=== PATIENT | male | born 1945 | race Caucasian/White ===

== ENCOUNTER 2016-10-13 20:00 | Inpatient (IN) | payer MEDICAID, OTHER ==
[~2016-10-13] VITALS: Ht 193 cm; Wt 96.8 kg
[~2016-10-13 20:00] MED LIST: ASPI81TA31 PO; FLUT9.9S NS; METO25TA6 PO
[2016-10-13] MEDS ORDERED: CLOP75TA33 PO (20:59)
[2016-10-13] MEDS ORDERED: ISOS120T9 PO (20:59)
[2016-10-13] MEDS ORDERED: LORA-980 PO (20:59)
[2016-10-13] MEDS ORDERED: FERR325T41 PO (20:59)
[2016-10-13] MEDS ORDERED: NITR0.4T SL (20:59)
[2016-10-13] MEDS ORDERED: AMLO10TA2 PO (20:59)
[2016-10-13] MEDS ORDERED: MAGN400T6 PO (20:59)
[2016-10-13] MEDS ORDERED: ATOR80TA26 PO (20:59)
[2016-10-13] MEDS ORDERED: CARV3.122 PO (20:59)
[2016-10-13] MEDS ORDERED: PANT40TA4 PO (21:00)
[2016-10-13] MEDS ORDERED: RANO10003 PO (21:00)
[2016-10-13] MEDS ORDERED: NITROGLYCERIN OINT 1 GM PACKET TP ONE ×2 (21:15→21:23)
[2016-10-13 21:28] LABS: BASOPHILS # (AUTO) 0.1 K/uL (0.0-8.0); BASOPHILS % (AUTO) 1.2 % (0.0-2.0); EOSINOPHILS # (AUTO) 0.2 K/uL (0.0-0.7); EOSINOPHILS % (AUTO) 2.7 % (0.0-7.0); HEMATOCRIT 31.9 % (36.7-47.1); HEMOGLOBIN 10.8 g/dL (12.5-16.3); LYMPHOCYTES # (AUTO) 1.3 K/uL (20.0-40.0); LYMPHOCYTES % (AUTO) 20.4 % (20.5-51.5); MEAN CORPUSCULAR HEMOGLOBIN 28.9 uug (23.8-33.4); MEAN CORPUSCULAR HGB CONC 34 g/dL (32.5-36.3); MEAN CORPUSCULAR VOLUME 85.2 fL (73.0-96.2); MONOCYTES # (AUTO) 0.5 K/uL (2.0-10.0); MONOCYTES % (AUTO) 8.5 % (0.0-11.0); NEUTROPHILS # (AUTO) 4.2 K/uL (1.8-8.9); NEUTROPHILS % (AUTO) 67.2 % (38.5-71.5); PLATELET COUNT (AUTO) 268 K/uL (152-348); RED BLOOD CELL COUNT(AUTO) 3.74 MIL/uL (4.06-5.63); RED CELL DISTRIBUTION WIDTH 14.4 % (12.1-16.2); WHITE BLOOD COUNT (AUTO) 6.3 K/uL (3.6-10.2)
[2016-10-13 21:44] LABS: CALCIUM 8.4 mg/dL (8.5-10.1); CREATININE 1.1 mg/dL (0.6-1.3); POTASSIUM 3.9 mmol/L (3.5-5.1)
[2016-10-13] MEDS ORDERED: CLOPIDOGREL 75 MG TABLET PO ONE (21:45)
[2016-10-13] MEDS ORDERED: METOPROLOL TARTRATE 50 MG TABLET PO ONE (21:45)
[2016-10-13] MEDS ORDERED: ENOXAPARIN SODIUM 30 MG/0.3 ML DISP.SYRIN SUBCUT ONE (21:45)
[2016-10-13 21:49] LABS: ALBUMIN 3.5 g/dL (3.4-5.0); BILIRUBIN,DIRECT 0.1 mg/dL (0.0-0.2); BILIRUBIN,TOTAL 0.3 mg/dL (0.2-1.0); TOTAL PROTEIN, SERUM 6.8 g/dL (6.4-8.2)
[2016-10-13] MEDS ORDERED: METOPROLOL TARTRATE 50 MG TABLET ONE (21:55)
[2016-10-13] MEDS ORDERED: ENOXAPARIN SODIUM 100 MG/ML DISP.SYRIN SQ ONE (21:55)
[2016-10-13] MEDS ORDERED: CLOPIDOGREL 75 MG TABLET ONE (21:56)
--- NOTE | 2016-10-13 22:00 | NUR ---
PT IN ROOM WITH NO DISTRESS NOTED
--- NOTE | 2016-10-13 22:47 | NUR ---
TRANSFERED TO 2ND FLOOR VIA [facility] [address] ROOM [address] JEVON
[2016-10-13 23:00] VITALS: BP 113/66
--- NOTE | 2016-10-13 23:15 | NUR ---
RECEIVED PT FROM ER BIB STAFF VIA [employer]. PT A/OX4, IN NO ACUTE DISTRESS. O2 SAT WNL ON RA. NO SOB OBSERVED/REPORTED. STATES CHEST PAIN BETTER WITH NITRO PATCH GIVEN IN ER, WITH PAIN LEVEL OF 2/10 AT THIS TIME, TOLERABLE PER PATIENT'S REPORT. MADE COMFORTABLE. IV TO L FA INTACT AND PATENT. C/O NAUSEA REQUESTING PROTONIX THAT "HELPS WITH NAUSEA", WILL NOTIFY MD. ALL NEEDS ATTENDED AT THIS TIME. VS STABLE. ON TELE SR ON THE MONITOR WITH HR 62. ADMISSION DONE PER PROTOCOL. WILL CONTINUE TO MONITOR.
[2016-10-13] MEDS ORDERED: NITROGLYCERIN 0.4 MG/TAB BOTTLE SL SCH (23:45)
[2016-10-14] MEDS ORDERED: HYDROCODONE/APAP 5-325MG TABLET PO PRN
[2016-10-14] MEDS ORDERED: ZOLPIDEM 5 MG TABLET PO PRN
[2016-10-14] MEDS ORDERED: ACETAMINOPHEN 325 MG TABLET PO PRN
[2016-10-14] MEDS ORDERED: PANTOPRAZOLE SODIUM 40 MG TABLET.DR PO STA (01:28)
--- NOTE | 2016-10-14 01:48 | NUR ---
PROTONIX 40MG PO X1 GIVEN ORDERED, PER PT'S REQUEST. WILL CONTINUE TO MONITOR.
[2016-10-14 04:00] VITALS: BP 110/72
--- NOTE | 2016-10-14 05:01 | NUR ---
PT C/O CHEST PAIN DESCRIBED DULL 10/03 REQUESTING MED, PRN NITROGLYCERIN TAB GIVEN PRESCRIBED. WILL CONTINUE TO MONITOR.
[2016-10-14] MEDS ORDERED: NITROGLYCERIN 0.4 MG/TAB BOTTLE SL ONE (05:03)
[2016-10-14 06:47] LABS: BASOPHILS % (AUTO) 0.5 % (0.0-2.0); EOSINOPHILS # (AUTO) 0.1 K/uL (0.0-0.7); HEMATOCRIT 31.7 % (36.7-47.1); HEMOGLOBIN 10.5 g/dL (12.5-16.3); MEAN CORPUSCULAR HEMOGLOBIN 29.1 uug (23.8-33.4); MEAN CORPUSCULAR HGB CONC 33 g/dL (32.5-36.3); MEAN CORPUSCULAR VOLUME 87.8 fL (73.0-96.2); MONOCYTES # (AUTO) 0.7 K/uL (2.0-10.0); MONOCYTES % (AUTO) 15.6 % (0.0-11.0); NEUTROPHILS # (AUTO) 2.8 K/uL (1.8-8.9); NEUTROPHILS % (AUTO) 59.9 % (38.5-71.5); PLATELET COUNT (AUTO) 223 K/uL (152-348); RED BLOOD CELL COUNT(AUTO) 3.61 MIL/uL (4.06-5.63); RED CELL DISTRIBUTION WIDTH 14.7 % (12.1-16.2); WHITE BLOOD COUNT (AUTO) 4.6 K/uL (3.6-10.2)
--- NOTE | 2016-10-14 06:56 | NUR ---
PATIENT SLEPT WELL PER SHIFT. CHEST PAIN MANAGED WITH PRN MED WITH GOOD RELIEF PER PT'S REPORT. VS STABLE. NO ACUTE DISTRESS NOTED. ALL NEEDS MET. CALL LIGHT IS WITHIN REACH. SAFETY MAINTAINED.
--- NOTE | 2016-10-14 07:01 | NUR ---
PT ON TELE SINUS FRANTZ ON THE MONITOR, HR- 53 AT THIS TIME. NO ACUTE DISTRESS NOTED. WILL ENDORSE PLAN OF CARE TO INCOMING NURSE.
[2016-10-14 08:04] LABS: THYROID STIMULATING HORMONE 2.015 mIU/mL (0.358-3.740)
[2016-10-14 08:28] LABS: ALBUMIN 3.2 g/dL (3.4-5.0); BILIRUBIN,TOTAL 0.2 mg/dL (0.2-1.0); CALCIUM 8.5 mg/dL (8.5-10.1); MAGNESIUM 2.3 mg/dL (1.8-2.4); PHOSPHOROUS 4.5 mg/dL (2.5-4.9); POTASSIUM 4.4 mmol/L (3.5-5.1); TOTAL PROTEIN, SERUM 6.6 g/dL (6.4-8.2)
[2016-10-14] MEDS ORDERED: Medication Not On Formulary EA (Atorvastatin Calcium (Lipitor) 80 MG) PO SCH (09:00)
[2016-10-14] MEDS: RANOLAZINE 500 MG TAB.ER.12H PO SCH ×2 (09:43→20:04)
[2016-10-14] MEDS: ISOSORBIDE MONONITRATE 60 MG TAB.SR.24H PO SCH (09:46)
[2016-10-14] MEDS: CLOPIDOGREL 75 MG TABLET PO SCH (09:46)
[2016-10-14] MEDS: PANTOPRAZOLE SODIUM 40 MG TABLET.DR PO SCH (09:47)
[2016-10-14] MEDS: FERROUS SULFATE 325 MG TABEC PO SCH (09:47)
[2016-10-14] MEDS: LORATADINE 10 MG TABLET PO SCH (09:47)
[2016-10-14] MEDS: MAGNESIUM OXIDE 400 MG TABLET PO SCH ×2 (09:47→17:17)
[2016-10-14] MEDS: AMLODIPINE 10 MG TABLET PO SCH (09:47)
[2016-10-14] MEDS: NITROGLYCERIN 0.4 MG/TAB BOTTLE SL PRN (09:50)
[2016-10-14 11:04] LABS: EOSINOPHILS % (MANUAL) 4 % (0-8); LYMPHOCYTES % (MANUAL) 23 % (20-40); MONOCYTES % (MANUAL) 11 % (2-10); NEUTROPHILS % (MANUAL) 62 % (42-75)
[2016-10-14 11:05] LABS: PLATELET ESTIMATE ADEQUATE
[2016-10-14] MEDS: CARVEDILOL 3.125 MG TABLET PO SCH ×3 (11:42→18:46)
[2016-10-14 12:00] VITALS: BP 116/67
--- NOTE | 2016-10-14 14:59 | NUR ---
Dr. Lozoya would like to transfer the patient to [facility] for a heart cath. This changeover operator spoke to the patient and explained to him about the transfer process and he stated not to bother transferring him because he will be leaving tomorrow morning and will go to [facility] ER. He stated he has done this in the past and would prefer to just be discharged tomorrow morning. Updated Dr. Dudley on the situation and he will talk to him about it. CM/SW will follow-up.
[2016-10-14 16:00] VITALS: BP 115/70
[2016-10-14] MEDS: MORPHINE SULFATE 2 MG/1 ML DISP.SYRIN IV PRN (17:17)
--- NOTE | 2016-10-14 17:18 | NUR ---
Patient reports chest pain again but refuses nitroglycerin. Patient requests morphine instead. Patient states, "Nitroglycerin is useless"
--- NOTE | 2016-10-14 19:30 | NUR ---
PT IN BED RESTING COMFORTABLY. NO ACUTE DISTRESS NOTED. NO S/S OF RESPIRATORY DISTRESS NOTED. CALL LIGHT WITHIN REACH. SAFETY MEASURES IN PLACE. ON TELE: SR ON THE MONITOR- HR 62. WILL CONTINUE TO MONITOR.
[2016-10-14] MEDS: DOCUSATE SODIUM 100 MG CAPSULE PO SCH (20:04)
[2016-10-14] MEDS: ATORVASTATIN 40 MG TABLET PO SCH (20:04)
[2016-10-14] MEDS: ALBUTEROL SULFATE 1.25 MG/3 ML NEBU NEB PRN (20:23)
[2016-10-14 20:33] VITALS: BP 102/61
[2016-10-15] VITALS: BP 115/66
[2016-10-15] MEDS: ALBUTEROL SULFATE 1.25 MG/3 ML NEBU NEB PRN ×3 (01:16→14:30)
[2016-10-15 04:00] VITALS: BP 128/71
[2016-10-15] MEDS: NITROGLYCERIN 0.4 MG/TAB BOTTLE SL PRN ×3 (06:02→09:01)
--- NOTE | 2016-10-15 06:48 | NUR ---
Patient slept well per shift. No acute distress noted. No s/s of respiratory distress observed/reported. Requesting prn nitro x1 this am for chest pain, with good relief stating " oh yeah it helps!" provided breathing tx prn per patient's request. on tele sr on the monitor. All needs met. Call light within reach. Safety and comfort maintained.
[2016-10-15] MEDS: CARVEDILOL 3.125 MG TABLET PO SCH ×2 (08:27→17:31)
[2016-10-15] MEDS: RANOLAZINE 500 MG TAB.ER.12H PO SCH ×2 (09:08→21:00)
[2016-10-15] MEDS: ISOSORBIDE MONONITRATE 60 MG TAB.SR.24H PO SCH (09:10)
[2016-10-15] MEDS: CLOPIDOGREL 75 MG TABLET PO SCH (09:12)
[2016-10-15] MEDS: MAGNESIUM OXIDE 400 MG TABLET PO SCH ×2 (09:12→17:30)
[2016-10-15] MEDS: LORATADINE 10 MG TABLET PO SCH (09:13)
[2016-10-15] MEDS: AMLODIPINE 10 MG TABLET PO SCH (09:14)
[2016-10-15] MEDS: FERROUS SULFATE 325 MG TABEC PO SCH (09:14)
[2016-10-15] MEDS: PANTOPRAZOLE SODIUM 40 MG TABLET.DR PO SCH (09:14)
[2016-10-15 11:28] VITALS: BP 128/75
[2016-10-15] MEDS: MORPHINE SULFATE 2 MG/1 ML DISP.SYRIN IV PRN (11:40)
[2016-10-15 15:42] VITALS: BP 112/68
[2016-10-15 19:00] VITALS: BP 119/70
[2016-10-15] MEDS: ASPIRIN EC 81 MG TABLET.DR PO SCH (21:12)
[2016-10-15] MEDS: ATORVASTATIN 40 MG TABLET PO SCH (21:13)
[2016-10-15] MEDS: DOCUSATE SODIUM 100 MG CAPSULE PO SCH (21:14)
[2016-10-15] MEDS ORDERED: ASPIRIN EC 81 MG TABLET.DR PO ONE (21:20)
[2016-10-16 00:07] VITALS: BP 101/60
--- NOTE | 2016-10-16 02:20 | NUR ---
Pt refused ranexa stating, " I get way too much of that, and I take way too many meds." pt was educated that the medication was for chest pain, pt verbalized he understood and still didn't want to take it. Pt has been resting well, denies pain. VSS. will continue to monitor.
[2016-10-16 04:00] VITALS: BP 119/73
--- NOTE | 2016-10-16 08:00 | NUR ---
Pt is in no acute distress. Discussed plan of care with pt re: notifying nursing for any c/o CP. Pt agreeable with plan of care currently pt is SNR . Pt ambulatory. Call light is within reach.
[2016-10-16] MEDS: PANTOPRAZOLE SODIUM 40 MG TABLET.DR PO SCH (08:36)
[2016-10-16] MEDS: CLOPIDOGREL 75 MG TABLET PO SCH (08:36)
[2016-10-16] MEDS: FERROUS SULFATE 325 MG TABEC PO SCH (08:36)
[2016-10-16] MEDS: RANOLAZINE 500 MG TAB.ER.12H PO SCH ×2 (08:36→20:55)
[2016-10-16] MEDS: MAGNESIUM OXIDE 400 MG TABLET PO SCH ×2 (08:36→18:03)
[2016-10-16] MEDS: ASPIRIN EC 81 MG TABLET.DR PO SCH (08:37)
[2016-10-16] MEDS: LORATADINE 10 MG TABLET PO SCH (08:37)
[2016-10-16] MEDS: ISOSORBIDE MONONITRATE 60 MG TAB.SR.24H PO SCH (08:38)
[2016-10-16] MEDS: AMLODIPINE 10 MG TABLET PO SCH (08:39)
[2016-10-16] MEDS: CARVEDILOL 3.125 MG TABLET PO SCH ×2 (08:39→18:06)
[2016-10-16 11:58] VITALS: BP 108/71
--- NOTE | 2016-10-16 14:20 | NUR ---
Spoke to the patient about his discharge he was very demanding and was refusing his discharge today. He insists on being discharged tomorrow just like it was last 10/14/16. Explained to him that he needs to be cooperative with his care in order to stop rehospitalization. Informed him that we will initiate [facility] Transfer and he agreed. Initiated the transfer and faxed the facesheet. Addendum: 10/16/16 at 1525 by SUSAN SILVA CMG Nenita Garcia from [facility] Transfer Center [ ; ] called back and stated that they are currently full and is unable to admit the patient. They will have to close the case because the patient should be able to get the heart cath as an out-patient.
[2016-10-16] MEDS: MORPHINE SULFATE 2 MG/1 ML DISP.SYRIN IV PRN (15:46)
[2016-10-16 16:00] VITALS: BP 96/62
[2016-10-16 20:00] VITALS: BP 96/52
[2016-10-16] MEDS: DOCUSATE SODIUM 100 MG CAPSULE PO SCH (20:55)
[2016-10-16] MEDS: diphenhydrAMINE 25 MG CAP PO PRN (20:55)
[2016-10-16] MEDS: ATORVASTATIN 40 MG TABLET PO SCH (20:55)
[2016-10-16] MEDS ORDERED: diphenhydrAMINE 25 MG CAP PO ONE (21:04)
[2016-10-16] MEDS: ALBUTEROL SULFATE 1.25 MG/3 ML NEBU NEB PRN (21:23)
[2016-10-17 00:20] VITALS: BP 105/71
[2016-10-17 04:00] VITALS: BP 113/66
--- NOTE | 2016-10-17 05:55 | NUR ---
PT IN BED RESTING, SLEPT MOST SHIFT. PT C/O 'BITE-LIKE' RASH ON LEFT SHOULDER WITH ITCHING, DR. LUNA MADE AWARE, WITH ORDER TO GIVE BENADRYL PO NEEDED. NOTED AND CARRIED OUT. V/S CHECKED AND RECORDED, AFEBRILE. DENIES PAIN. PT ON SINUS FRANTZ ON TELE, IN NO ACUTE SIGNS OF DISTRESS. SAFETY OBSERVED. CALL LIGHT WITHIN REACH.
[2016-10-17 07:19] LABS: BASOPHILS % (AUTO) 0.4 % (0.0-2.0); EOSINOPHILS # (AUTO) 0.1 K/uL (0.0-0.7); EOSINOPHILS % (AUTO) 2.6 % (0.0-7.0); HEMATOCRIT 34.7 % (36.7-47.1); HEMOGLOBIN 11.8 g/dL (12.5-16.3); LYMPHOCYTES # (AUTO) 0.9 K/uL (20.0-40.0); LYMPHOCYTES % (AUTO) 15.9 % (20.5-51.5); MEAN CORPUSCULAR HEMOGLOBIN 29.1 uug (23.8-33.4); MEAN CORPUSCULAR HGB CONC 34 g/dL (32.5-36.3); MEAN CORPUSCULAR VOLUME 85.6 fL (73.0-96.2); MONOCYTES # (AUTO) 0.4 K/uL (2.0-10.0); MONOCYTES % (AUTO) 6.7 % (0.0-11.0); NEUTROPHILS # (AUTO) 4.3 K/uL (1.8-8.9); NEUTROPHILS % (AUTO) 74.4 % (38.5-71.5); PLATELET COUNT (AUTO) 214 K/uL (152-348); RED BLOOD CELL COUNT(AUTO) 4.05 MIL/uL (4.06-5.63); RED CELL DISTRIBUTION WIDTH 13.9 % (12.1-16.2)
[2016-10-17 07:41] LABS: WHITE BLOOD COUNT (AUTO) 5.8 K/uL (3.6-10.2)
[2016-10-17 07:57] LABS: CALCIUM 8.5 mg/dL (8.5-10.1); CREATININE 1.1 mg/dL (0.6-1.3); MAGNESIUM 2.3 mg/dL (1.8-2.4); PHOSPHOROUS 4.1 mg/dL (2.5-4.9); POTASSIUM 4.2 mmol/L (3.5-5.1)
[2016-10-17] MEDS: MAGNESIUM OXIDE 400 MG TABLET PO SCH (08:03)
[2016-10-17] MEDS: LORATADINE 10 MG TABLET PO SCH (08:03)
[2016-10-17] MEDS: RANOLAZINE 500 MG TAB.ER.12H PO SCH (08:04)
[2016-10-17] MEDS: FERROUS SULFATE 325 MG TABEC PO SCH (08:04)
[2016-10-17] MEDS: ASPIRIN EC 81 MG TABLET.DR PO SCH (08:04)
[2016-10-17] MEDS: CLOPIDOGREL 75 MG TABLET PO SCH (08:04)
[2016-10-17] MEDS: CARVEDILOL 3.125 MG TABLET PO SCH (08:04)
[2016-10-17] MEDS: AMLODIPINE 10 MG TABLET PO SCH (08:05)
[2016-10-17] MEDS: ISOSORBIDE MONONITRATE 60 MG TAB.SR.24H PO SCH (08:05)
[2016-10-17] MEDS: diphenhydrAMINE 25 MG CAP PO PRN (08:10)
[2016-10-17] MEDS: PANTOPRAZOLE SODIUM 40 MG TABLET.DR PO SCH (08:10)
[2016-10-17] MEDS: ALBUTEROL SULFATE 1.25 MG/3 ML NEBU NEB PRN (08:32)
[2016-10-17 12:00] VITALS: BP 106/61
[2016-10-17] MEDS ORDERED: MECL12.582 PO (13:42)
--- NOTE | 2016-10-17 15:07 | NUR ---
Pharmacist spoke with pt re: new medication meclizine Side effects and its purpose. Pt verbalized understanding. Pt denies any further cp. Instructed pt to f/u with PMD and automotive collision estimator within 1 week. Pt is instructed to go to ER for any c/o cp. Pt verbalized understanding. IV d/c per pt request. Pt to f/u with his PMD about vaccines updates. Pt is in no acute distress. Awaiting ride for pt. Call light is within reach.
--- NOTE | 2016-10-17 15:30 | NUR ---
Pt dc with family member private care. Pt is in no acute distress.
== END 2016-10-17 15:30 | disposition home or self-care (01) | DRG 190 ==
LOC: ER 20:00 → TELE 22:36
PROVIDERS: ADMIT Internal Medicine; ATTEND Internal Medicine
DX: I21.4 Non-ST elevation (NSTEMI) myocardial infarction (principal); I10 Essential (primary) hypertension; M47.814 Spondylosis without myelopathy or radiculopathy, thoracic region; I25.2 Old myocardial infarction; K21.9 Gastro-esophageal reflux disease without esophagitis; Z95.5 Presence of coronary angioplasty implant and graft; I25.119 Atherosclerotic heart disease of native coronary artery with unspecified angina pectoris; J30.9 Allergic rhinitis, unspecified; F41.9 Anxiety disorder, unspecified; E78.5 Hyperlipidemia, unspecified; E66.9 Obesity, unspecified; Z68.26 Body mass index [BMI] 26.0-26.9, adult; D64.9 Anemia, unspecified; Z79.899 Other long term (current) drug therapy; Z82.49 Family history of ischemic heart disease and other diseases of the circulatory system; Z87.891 Personal history of nicotine dependence
CPT/HCPCS: 36415; 70030-TC; 71010; 83550; 83735; 84100; 84443; 85025; 85730; 93005; 93307; 94640; 94664; A4663; J1650; J2270; Q0163

== ENCOUNTER 2017-05-09 19:27 | Inpatient (IN) | payer OTHER ==
[~2017-05-09] VITALS: Ht 185.4 cm; Wt 94.1 kg
[~2017-05-09 19:27] MED LIST changes: +AMLO10TA2 PO; +ATOR80TA26 PO; +CARV3.122 PO; +CLOP75TA33 PO; +FERR-68 PO; +ISOS120T9 PO; +LORA-980 PO; +MAGN400T6 PO; +MECL12.582 PO; -METO25TA6 PO; +NITR0.4T SL; +PANT40TA4 PO; +RANO10003 PO
[2017-05-09] MEDS ORDERED: NITROGLYCERIN OINT 1 GM PACKET TP ONE ×2 (19:45→20:07)
[2017-05-09] MEDS ORDERED: ASPIRIN 325 MG TABLET PO ONE (19:45)
[2017-05-09] MEDS ORDERED: ASPIRIN 325 MG TABLET ONE (20:07)
[2017-05-09 20:13] LABS: BASOPHILS # (AUTO) 0.1 K/uL (0.0-8.0); BASOPHILS % (AUTO) 1.8 % (0.0-2.0); EOSINOPHILS # (AUTO) 0.2 K/uL (0.0-0.7); EOSINOPHILS % (AUTO) 3.6 % (0.0-7.0); HEMATOCRIT 29.7 % (40-50); HEMOGLOBIN 10.4 G/DL (14.0-18.0); LYMPHOCYTES % (AUTO) 16.4 % (20.5-51.5); MEAN CORPUSCULAR HEMOGLOBIN 29.9 UUG (27.0-31.0); MEAN CORPUSCULAR HGB CONC 35 g/dL (32.0-37.0); MEAN CORPUSCULAR VOLUME 85.8 FL (82.0-92.0); MONOCYTES # (AUTO) 0.4 K/UL (0.1-1.30); MONOCYTES % (AUTO) 6.4 % (0.0-11.0); NEUTROPHILS # (AUTO) 4.7 K/UL (1.8-8.9); NEUTROPHILS % (AUTO) 71.8 % (38.5-71.5); PLATELET COUNT (AUTO) 259 K/UL (150-450); RED BLOOD CELL COUNT(AUTO) 3.46 MIL/UL (4.7-6.1); WHITE BLOOD COUNT (AUTO) 6.4 K/UL (4.0-11.2)
[2017-05-09 20:16] LABS: CARBON DIOXIDE 28 mmol/L (21-32); CHLORIDE 107 mmol/L (98-107); GLUCOSE 125 mg/dL (74-106); POTASSIUM 3.7 mmol/L (3.5-5.1); UREA NITROGEN, BLOOD 22 mg/dL (7-18)
[2017-05-09 20:28] LABS: ALANINE AMINOTRANSFERASE 32 U/L (16-63); ALKALINE PHOSPHATASE 82 U/L (50-136); ASPARTATE AMINOTRANSFERASE 28 U/L (15-37); BILIRUBIN,DIRECT < 0.1 mg/dL (0.0-0.2); BILIRUBIN,TOTAL 0.2 mg/dL (0.2-1.0); TOTAL PROTEIN, SERUM 6.5 g/dL (6.4-8.2)
--- NOTE | 2017-05-09 21:58 | NUR ---
Pt. admitted to TELE, under care of Dr. Dudley Belongs List completed
[2017-05-09 22:26] VITALS: BP 116/60
--- NOTE | 2017-05-09 22:30 | NUR ---
Pt asleep upon arrivial in no acute distress. Pt responsive to touch, and a/o x 3. Denies any chest pain or abdominal discomfort at this time. Verbalized i have a small headaches. Pt admitted to Tele sinus rhythm. BP 123/70. O2 sat 98% upon RA. Skin intact and able to move bilateral upper and lower extremities without difficulty. 2 side rails up and call light placed within reach. Continue to monitor.
[2017-05-09] MEDS ORDERED: ACETAMINOPHEN 325 MG TABLET PO PRN (23:15)
[2017-05-09] MEDS ORDERED: MORPHINE SULFATE 2 MG/1 ML DISP.SYRIN IV PRN (23:15)
[2017-05-09] MEDS ORDERED: NITROGLYCERIN 0.4 MG/TAB BOTTLE SL SCH (23:15)
[2017-05-10] VITALS: BP 123/70
--- NOTE | 2017-05-10 01:00 | NUR ---
Pt in room asleep in no acute distress. Normal SR noted. No c/o chest pain since admission. Continue to monitor.
[2017-05-10 04:00] VITALS: BP 131/79
--- NOTE | 2017-05-10 06:05 | NUR ---
Pt complaining of chest pain at this time. Requested Nitro. Nitro 0.4mg tab to be given SL. BP 131/79. Continue to monitor.
[2017-05-10] MEDS ORDERED: NITROGLYCERIN 0.4 MG/TAB BOTTLE SL ONE (06:07)
--- NOTE | 2017-05-10 06:10 | NUR ---
Pt states relieved with Nitro medication and no chest pain noted at this time. Continue to monitor.
--- NOTE | 2017-05-10 06:35 | NUR ---
BP noted 123/74. No c/o chest pain at this time. Able to follow simple commands without difficulty.
[2017-05-10 07:12] LABS: BASOPHILS % (AUTO) 0.6 % (0.0-2.0); EOSINOPHILS # (AUTO) 0.2 K/uL (0.0-0.7); EOSINOPHILS % (AUTO) 3.7 % (0.0-7.0); HEMATOCRIT 32.6 % (36.7-47.1); HEMOGLOBIN 11.3 g/dL (12.5-16.3); LYMPHOCYTES # (AUTO) 0.8 K/uL (20.0-40.0); LYMPHOCYTES % (AUTO) 13.1 % (20.5-51.5); MEAN CORPUSCULAR HEMOGLOBIN 29.8 uug (23.8-33.4); MEAN CORPUSCULAR HGB CONC 35 g/dL (32.5-36.3); MEAN CORPUSCULAR VOLUME 85.9 fL (73.0-96.2); MONOCYTES # (AUTO) 0.4 K/uL (2.0-10.0); MONOCYTES % (AUTO) 6.5 % (0.0-11.0); NEUTROPHILS # (AUTO) 4.8 K/uL (1.8-8.9); NEUTROPHILS % (AUTO) 76.1 % (38.5-71.5); PLATELET COUNT (AUTO) 195 K/uL (152-348); RED BLOOD CELL COUNT(AUTO) 3.79 MIL/uL (4.06-5.63); WHITE BLOOD COUNT (AUTO) 6.4 K/uL (3.6-10.2)
--- NOTE | 2017-05-10 08:00 | NUR ---
awake alert and oriented, denies of chest pain, 02 at 2l/nc, tele SB 59- explained plan of care- verbalized understanding, safety measures maintained, call light within reach
[2017-05-10 08:14] LABS: BILIRUBIN,TOTAL 0.2 mg/dL (0.2-1.0); MAGNESIUM 2.4 mg/dL (1.8-2.4); PHOSPHOROUS 4.5 mg/dL (2.5-4.9); POTASSIUM 4.7 mmol/L (3.5-5.1); TOTAL PROTEIN, SERUM 6.5 g/dL (6.4-8.2)
[2017-05-10] MEDS: AMLODIPINE 10 MG TABLET PO SCH (08:43)
[2017-05-10] MEDS: ASPIRIN 81 MG TAB.CHEW PO SCH (08:43)
[2017-05-10] MEDS: LORATADINE 10 MG TABLET PO SCH (08:44)
[2017-05-10] MEDS: MAGNESIUM OXIDE 400 MG TABLET PO SCH ×2 (08:44→17:22)
[2017-05-10] MEDS: CLOPIDOGREL 75 MG TABLET PO SCH (08:44)
[2017-05-10] MEDS: FERROUS SULFATE 325 MG TABEC PO SCH (08:44)
[2017-05-10] MEDS: CARVEDILOL 3.125 MG TABLET PO SCH ×2 (09:00→17:23)
[2017-05-10] MEDS ORDERED: HYDROCODONE/APAP 5-325MG TABLET PO PRN (10:30)
[2017-05-10 11:14] LABS: THYROID STIMULATING HORMONE 1.75 mIU/mL (0.358-3.740)
[2017-05-10] MEDS: NITROGLYCERIN 0.4 MG/TAB BOTTLE SL PRN (12:09)
--- NOTE | 2017-05-10 12:09 | NUR ---
c/o chest pressure, BP 140/77, SB on monitor at 58, denies of SOB, medicated with NTG 0.4 mg SL as prn- will monitor closely
--- NOTE | 2017-05-10 12:25 | NUR ---
states "chest pressure is gone, i dont need another one"
[2017-05-10 12:46] VITALS: BP 140/77
--- NOTE | 2017-05-10 14:30 | NUR ---
RESTING IN BED, DENIES OF CHEST PRESSURE/SOB, NEEDS ATTENDED, TELE SB 58
--- NOTE | 2017-05-10 15:30 | NUR ---
called Dr Lopez- will see pt later
[2017-05-10 15:57] VITALS: BP 154/78
[2017-05-10] MEDS: ISOSORBIDE MONONITRATE 60 MG TAB.SR.24H PO SCH (18:31)
[2017-05-10] MEDS: FLUTICASONE PROP NASAL SPRAY 16 GM BOTTLE NS SCH (18:32)
--- NOTE | 2017-05-10 18:41 | NUR ---
no distress noted, all needs attended and met, call lite within reach, Tele SB 58
[2017-05-10 20:35] VITALS: BP 116/66
[2017-05-10] MEDS: RANOLAZINE 500 MG TAB.ER.12H PO SCH (20:41)
[2017-05-10] MEDS: ENOXAPARIN SODIUM 100 MG/ML DISP.SYRIN SQ SCH (22:07)
[2017-05-10] MEDS ORDERED: ENOXAPARIN SODIUM 100 MG/ML DISP.SYRIN SQ ONE (22:21)
[2017-05-11] VITALS: BP 106/60
[2017-05-11 04:00] VITALS: BP 107/62
[2017-05-11] MEDS: PANTOPRAZOLE SODIUM 40 MG TABLET.DR PO SCH (05:24)
--- NOTE | 2017-05-11 06:00 | NUR ---
No report of chest pain, sinus rhythm sinus katherine on the monitor. Vital signs WNL.
[2017-05-11] MEDS: CARVEDILOL 3.125 MG TABLET PO SCH ×2 (08:00→17:19)
--- NOTE | 2017-05-11 08:00 | NUR ---
alert and oriented, 02 at 2l/nc, tele SB 58, denies of chest pain/pressure, explained plan of care-verbalized understanding, needs attended, safety measures maintained
[2017-05-11] MEDS: AMLODIPINE 10 MG TABLET PO SCH (08:24)
[2017-05-11] MEDS: ISOSORBIDE MONONITRATE 60 MG TAB.SR.24H PO SCH (08:24)
[2017-05-11] MEDS: FERROUS SULFATE 325 MG TABEC PO SCH (08:24)
[2017-05-11] MEDS: RANOLAZINE 500 MG TAB.ER.12H PO SCH ×2 (08:24→20:42)
[2017-05-11] MEDS: MAGNESIUM OXIDE 400 MG TABLET PO SCH ×2 (08:25→17:22)
[2017-05-11] MEDS: ASPIRIN 81 MG TAB.CHEW PO SCH (08:25)
[2017-05-11] MEDS: CLOPIDOGREL 75 MG TABLET PO SCH (08:26)
[2017-05-11] MEDS: LORATADINE 10 MG TABLET PO SCH (08:26)
[2017-05-11] MEDS: ENOXAPARIN SODIUM 100 MG/ML DISP.SYRIN SQ SCH ×2 (08:27→20:43)
[2017-05-11] MEDS: FLUTICASONE PROP NASAL SPRAY 16 GM BOTTLE NS SCH ×2 (08:28→17:22)
[2017-05-11] MEDS: NITROGLYCERIN 0.4 MG/TAB BOTTLE SL PRN ×2 (09:38→10:51)
--- NOTE | 2017-05-11 09:38 | NUR ---
c/o chest pressure- NTG 0.4mg po given, BP 117/65, denies of shortness of breath, skin warm and dry, will continue to monitor closely
--- NOTE | 2017-05-11 10:00 | NUR ---
states chest pressure relieved, ate good breakfast
--- NOTE | 2017-05-11 10:51 | NUR ---
c/o chest pressure- no change in rhythm noted, still SB 59. placed on 2l/nc 02, will monitor closely
--- NOTE | 2017-05-11 11:10 | NUR ---
states doesn't need anymore dose of NTG- chest pressure relieved
[2017-05-11 11:24] VITALS: BP 111/50
--- NOTE | 2017-05-11 13:30 | NUR ---
seen by Dr Dudley and spoke to him at length
[2017-05-11] MEDS ORDERED: IV NORMAL SALINE 250 ML IV ONE (14:38)
[2017-05-11] MEDS ORDERED: IOHEXOL 300MG/ML 100 ML INFUS..BTL ONE (14:38)
[2017-05-11] MEDS ORDERED: BARIUM SULFATE 450 ML ORAL.SUSP ONE (14:38)
[2017-05-11 15:15] VITALS: BP 110/59
--- NOTE | 2017-05-11 16:30 | NUR ---
PT TRANSFERRED TO CT SCAN VIA WHEEL CHAIR. PT STABLE TO TRANSFER, VITAL SIGNS STABLE, SALINE LOCK PATENT, INTACT, NOT SWOLLEN AND RED.
--- NOTE | 2017-05-11 16:48 | NUR ---
PT ARRIVED FROM CT SCAN, HEART MONITOR DISCONTINUED.
[2017-05-11 19:58] VITALS: BP 108/76
--- NOTE | 2017-05-11 20:00 | NUR ---
Received patient awake on bed, alert & oriented no SOB denies chest pain. Requesting for coffee. Decaf coffee provided. Vital signs are WNL.
[2017-05-12 04:00] VITALS: BP 129/69
[2017-05-12] MEDS: PANTOPRAZOLE SODIUM 40 MG TABLET.DR PO SCH (06:09)
--- NOTE | 2017-05-12 07:10 | NUR ---
Received report from personal lines appraiser nurse. Patient in bed awake, no evidence of distress noted, bed raised per patient request, declined to have it lowered. Side rails up x2, bed alarm on.
[2017-05-12] MEDS: RANOLAZINE 500 MG TAB.ER.12H PO SCH ×2 (08:43→20:06)
[2017-05-12] MEDS: LORATADINE 10 MG TABLET PO SCH (08:44)
[2017-05-12] MEDS: AMLODIPINE 10 MG TABLET PO SCH (08:44)
[2017-05-12] MEDS: ISOSORBIDE MONONITRATE 60 MG TAB.SR.24H PO SCH (08:44)
[2017-05-12] MEDS: CARVEDILOL 3.125 MG TABLET PO SCH ×2 (08:44→17:23)
[2017-05-12] MEDS: FERROUS SULFATE 325 MG TABEC PO SCH (08:45)
[2017-05-12] MEDS: MAGNESIUM OXIDE 400 MG TABLET PO SCH ×2 (08:45→17:23)
[2017-05-12] MEDS: FLUTICASONE PROP NASAL SPRAY 16 GM BOTTLE NS SCH ×2 (08:45→17:23)
[2017-05-12] MEDS: CLOPIDOGREL 75 MG TABLET PO SCH (08:45)
[2017-05-12] MEDS: ASPIRIN 81 MG TAB.CHEW PO SCH (08:45)
[2017-05-12] MEDS: ENOXAPARIN SODIUM 100 MG/ML DISP.SYRIN SQ SCH ×3 (08:56→20:20)
[2017-05-12 11:16] VITALS: BP 122/67
[2017-05-12 14:56] VITALS: BP 112/62
--- NOTE | 2017-05-12 15:35 | NUR ---
Patient reported being dizzy. Vitals were checked, all WNL, patient requested meclizine which he stated helps when he becomes dizzy.
[2017-05-12] MEDS: MECLIZINE HCL 12.5 MG TABLET PO PRN (16:26)
--- NOTE | 2017-05-12 18:13 | NUR ---
Patient is in bed, no evidence of distress noted at this time. Patient refuses to have the bed lowered. Patient ambulates to bathroom on own. Side rails up x2.
--- NOTE | 2017-05-12 19:20 | NUR ---
RECEIVED PATIENT RESTING IN BED, BED RAISED PER PATIENT'S REQUEST APPROPRIATE FOR HIS HEIGHT. PATIENT REFUSED TO HAVE HIS BED LOWERED. DISCUSSED WITH PATIENT REGARDING SAFETY RISKS AND FALLS, PATIENT VERBALIZED UNDERSTANDING. WILL CONTINUE TO MONITOR.
[2017-05-12 20:00] VITALS: BP 113/61
--- NOTE | 2017-05-12 20:20 | NUR ---
PATIENT REFUSED SCHEDULED LOVENOX. PT STATED "I ALREADY TOOK IT IN THE MORNING, I DON'T NEED TO TAKE IT TWICE A DAY, IT'S TOO MUCH MEDICATIONS". EXPLAINED RISKS/BENEFITS OF TAKING/NOT TAKING LOVENOX, PT VERBALIZED UNDERSTANDING BUT STILL REFUSED LOVENOX. WILL NOTIFY MD. WILL CONTINUE TO MONITOR.
--- NOTE | 2017-05-12 23:00 | NUR ---
NOTIFIED REGARDING PATIENT'S REFUSAL OF LOVENOX.
[2017-05-13 05:47] VITALS: BP 120/65
[2017-05-13] MEDS: PANTOPRAZOLE SODIUM 40 MG TABLET.DR PO SCH (06:02)
--- NOTE | 2017-05-13 06:30 | NUR ---
PT SLEPT WELL, IN NO ACUTE DISTRESS, NO C/O OF HEADACHE, NAUSEA, CHEST PAIN, SOB. FREQUENT SAFETY REMINDERS OF LOWERING BED AND RISKS FOR FALLS. WILL CONTINUE TO MONITOR.
--- NOTE | 2017-05-13 07:20 | NUR ---
Received report from patient financial counselor nurse, patient in bed asleep, no evidence of distress noted. Bed in low position, side rails up x2.
--- NOTE | 2017-05-13 08:30 | NUR ---
Patient is expressing anger because he has not spoken to the DrBonny and missed him last night. Informed Dr. Dudley.
[2017-05-13] MEDS: FERROUS SULFATE 325 MG TABEC PO SCH (08:51)
[2017-05-13] MEDS: ASPIRIN 81 MG TAB.CHEW PO SCH (08:51)
[2017-05-13] MEDS: CARVEDILOL 3.125 MG TABLET PO SCH ×2 (08:51→17:52)
[2017-05-13] MEDS: MAGNESIUM OXIDE 400 MG TABLET PO SCH ×2 (08:52→17:51)
[2017-05-13] MEDS: LORATADINE 10 MG TABLET PO SCH (08:52)
[2017-05-13] MEDS: RANOLAZINE 500 MG TAB.ER.12H PO SCH ×2 (08:52→20:54)
[2017-05-13] MEDS: ISOSORBIDE MONONITRATE 60 MG TAB.SR.24H PO SCH (08:53)
[2017-05-13] MEDS: ENOXAPARIN SODIUM 100 MG/ML DISP.SYRIN SQ SCH ×3 (08:53→21:00)
[2017-05-13] MEDS: AMLODIPINE 10 MG TABLET PO SCH (08:53)
[2017-05-13] MEDS: CLOPIDOGREL 75 MG TABLET PO SCH (08:53)
[2017-05-13] MEDS: FLUTICASONE PROP NASAL SPRAY 16 GM BOTTLE NS SCH ×2 (08:58→17:52)
[2017-05-13 10:56] VITALS: BP 120/72
[2017-05-13 15:26] VITALS: BP 120/69
--- NOTE | 2017-05-13 18:46 | NUR ---
patient in bed awake, no evidence of distress noted. Patient refuses to lower bed because it is easier to get out of bed due to height. All needs met.
[2017-05-13 20:00] VITALS: BP 104/59
--- NOTE | 2017-05-13 20:00 | NUR ---
RECEIVED PATIENT AWAKE IN BED. A/O X4. DENIES PAIN OR DISCOMFORT. NO RESP. DISTRESS NOTED. VSS. HEPLOCK INTACT AND PATENT. CALL LIGHT IN REACH. ALL NEEDS ATTENDED. WILL CONTINUE TO MONITOR.
[2017-05-14 05:45] VITALS: BP 115/63
--- NOTE | 2017-05-14 06:10 | NUR ---
PATIENT ASLEEP IN BED. EASILY AROUSABLE. DENIES CHEST PAIN. VS WNL. SLEPT WELL THROUGHOUT THE NIGHT. CALL LIGHT IN REACH. ALL NEEDS ATTENDED.
[2017-05-14] MEDS: PANTOPRAZOLE SODIUM 40 MG TABLET.DR PO SCH (06:19)
--- NOTE | 2017-05-14 07:10 | NUR ---
RECEIVED REPORT FROM CLINICAL NURSING DIRECTOR NURSE, PATIENT IN BED AWAKE, NO EVIDENCE OF DISTRESS NOTED. PATIENT REFUSES TO LOWER BED, SIDE RAILS UP X2.
[2017-05-14 07:50] LABS: BASOPHILS % (AUTO) 0.4 % (0.0-2.0); EOSINOPHILS # (AUTO) 0.2 K/uL (0.0-0.7); EOSINOPHILS % (AUTO) 4.1 % (0.0-7.0); HEMATOCRIT 37.2 % (36.7-47.1); HEMOGLOBIN 12.8 g/dL (12.5-16.3); LYMPHOCYTES # (AUTO) 0.7 K/uL (20.0-40.0); LYMPHOCYTES % (AUTO) 13.6 % (20.5-51.5); MEAN CORPUSCULAR HEMOGLOBIN 29.6 uug (23.8-33.4); MEAN CORPUSCULAR HGB CONC 35 g/dL (32.5-36.3); MEAN CORPUSCULAR VOLUME 85.8 fL (73.0-96.2); MONOCYTES # (AUTO) 0.4 K/uL (2.0-10.0); MONOCYTES % (AUTO) 6.5 % (0.0-11.0); NEUTROPHILS # (AUTO) 4.1 K/uL (1.8-8.9); NEUTROPHILS % (AUTO) 75.4 % (38.5-71.5); PLATELET COUNT (AUTO) 206 K/uL (152-348); RED BLOOD CELL COUNT(AUTO) 4.33 MIL/uL (4.06-5.63); WHITE BLOOD COUNT (AUTO) 5.4 K/uL (3.6-10.2)
[2017-05-14 07:51] LABS: CREATININE 1.1 mg/dL (0.6-1.3); MAGNESIUM 2.4 mg/dL (1.8-2.4); PHOSPHOROUS 4.2 mg/dL (2.5-4.9)
[2017-05-14] MEDS: LORATADINE 10 MG TABLET PO SCH (08:20)
[2017-05-14] MEDS: FERROUS SULFATE 325 MG TABEC PO SCH (08:20)
[2017-05-14] MEDS: RANOLAZINE 500 MG TAB.ER.12H PO SCH ×2 (08:21→20:25)
[2017-05-14] MEDS: MAGNESIUM OXIDE 400 MG TABLET PO SCH (08:21)
[2017-05-14] MEDS: CARVEDILOL 3.125 MG TABLET PO SCH ×2 (08:22→16:57)
[2017-05-14] MEDS: ASPIRIN 81 MG TAB.CHEW PO SCH (08:22)
[2017-05-14] MEDS: AMLODIPINE 10 MG TABLET PO SCH (08:22)
[2017-05-14] MEDS: CLOPIDOGREL 75 MG TABLET PO SCH (08:22)
[2017-05-14] MEDS: FLUTICASONE PROP NASAL SPRAY 16 GM BOTTLE NS SCH ×2 (08:23→16:58)
[2017-05-14] MEDS: ISOSORBIDE MONONITRATE 60 MG TAB.SR.24H PO SCH (08:23)
[2017-05-14] MEDS: ENOXAPARIN SODIUM 100 MG/ML DISP.SYRIN SQ SCH ×3 (08:24→20:36)
[2017-05-14 11:10] VITALS: BP 116/77
[2017-05-14] MEDS: MECLIZINE HCL 12.5 MG TABLET PO PRN ×2 (11:49→19:56)
--- NOTE | 2017-05-14 15:00 | NUR ---
DISCHARGE ORDERS PLACED, AND PATIENT REQUESTED TO SPEAK WITH DR HASSAN. AFTER THEIR DISCUSSION, DR HASSAN INFORMED PATIENT THAT HE IS TO BE DISCHARGED TOMORROW MORNING. 05/15/17
[2017-05-14 15:10] VITALS: BP 114/65
--- NOTE | 2017-05-14 18:33 | NUR ---
PATIENT IS IN BED AWAKE, NO EVIDENCE OF DISTRESS NOTED. BED REMAINS IN HIGHER POSITION PATIENT REFUSES TO LOWER BED DUE TO HIS HEIGHT. ALL NEEDS MET, SIDE RAILS UP X2.
[2017-05-14 20:00] VITALS: BP 131/86
[2017-05-14] MEDS ORDERED: MAGN400C PO (23:31)
[2017-05-14] MEDS ORDERED: ATOR80TA PO (23:31)
[2017-05-14] MEDS ORDERED: AMLO5TAB4 PO (23:31)
[2017-05-15 04:45] VITALS: BP 125/77
[2017-05-15] MEDS: PANTOPRAZOLE SODIUM 40 MG TABLET.DR PO SCH (06:24)
--- NOTE | 2017-05-15 07:05 | NUR ---
RECEIVED REPORT FROM STUDENT ADVISOR NURSE, PATIENT AMBULATING IN ROOM, ANXIOUS TO BE DISCHARGED. NO EVIDENCE OF DISTRESS NOTED BESIDES ANXIETY. NO SHORTNESS OF BREATH, NO PAIN REPORTED.
[2017-05-15] MEDS: CLOPIDOGREL 75 MG TABLET PO SCH (08:01)
[2017-05-15] MEDS: ISOSORBIDE MONONITRATE 60 MG TAB.SR.24H PO SCH (08:01)
[2017-05-15] MEDS: LORATADINE 10 MG TABLET PO SCH (08:02)
[2017-05-15] MEDS: RANOLAZINE 500 MG TAB.ER.12H PO SCH (08:02)
[2017-05-15] MEDS: FERROUS SULFATE 325 MG TABEC PO SCH (08:02)
[2017-05-15] MEDS: AMLODIPINE 10 MG TABLET PO SCH (08:02)
[2017-05-15 08:03] VITALS: BP 118/77
[2017-05-15] MEDS: ENOXAPARIN SODIUM 100 MG/ML DISP.SYRIN SQ SCH (08:03)
[2017-05-15] MEDS: CARVEDILOL 3.125 MG TABLET PO SCH (08:03)
[2017-05-15] MEDS: ASPIRIN 81 MG TAB.CHEW PO SCH (08:03)
[2017-05-15] MEDS: FLUTICASONE PROP NASAL SPRAY 16 GM BOTTLE NS SCH (08:03)
--- NOTE | 2017-05-15 08:40 | NUR ---
ALL DISCHARGE PAPERWORK REVIEWED WITH PATIENT, IV HAD BEEN REMOVED FROM PRIOR SHIFT. INFORMED PATIENT OF THE PHARMACY THAT MEDICATIONS HAD BEEN SENT TO. NO EVIDENCE OF DISTRESS NOTED, NO SHORTNESS OF BREATH, NO PAIN. PATIENT WAS WALKED DOWN TO DISCHARGE HE REFUSED TO BE TAKEN IN A WHEELCHAIR.
[2017-05-15] MEDS ORDERED: MAGNESIUM OXIDE 400 MG TABLET PO SCH (21:00)
== END 2017-05-15 08:40 | disposition home or self-care (01) | DRG 190 ==
LOC: ER 19:31 → TELE 22:02 → MED 05-11 16:30
PROVIDERS: ADMIT Internal Medicine; ATTEND Internal Medicine
DX: I21.4 Non-ST elevation (NSTEMI) myocardial infarction (principal); E27.8 Other specified disorders of adrenal gland; J98.11 Atelectasis; D64.9 Anemia, unspecified; I25.2 Old myocardial infarction; I25.119 Atherosclerotic heart disease of native coronary artery with unspecified angina pectoris; K21.9 Gastro-esophageal reflux disease without esophagitis; Z79.899 Other long term (current) drug therapy; J30.9 Allergic rhinitis, unspecified; K40.20 Bilateral inguinal hernia, without obstruction or gangrene, not specified as recurrent; Z82.49 Family history of ischemic heart disease and other diseases of the circulatory system; Z79.82 Long term (current) use of aspirin; M48.061 Spinal stenosis, lumbar region without neurogenic claudication; E66.9 Obesity, unspecified; Z68.27 Body mass index [BMI] 27.0-27.9, adult; N28.1 Cyst of kidney, acquired; R42 Dizziness and giddiness; I10 Essential (primary) hypertension; Z95.5 Presence of coronary angioplasty implant and graft; Z87.891 Personal history of nicotine dependence
CPT/HCPCS: 36415; 70030-TC; 71010; 83735; 84100; 84443; 85025; 85730; 93005; 93307; A4663; J1650; J3535; J7050; J8597; Q9951; Q9967

== ENCOUNTER 2017-07-15 19:25 | Inpatient (IN) | payer OTHER ==
[~2017-07-15] VITALS: Ht 185.4 cm; Wt 93.0 kg
[~2017-07-15 19:25] MED LIST changes: -AMLO10TA2 PO; +AMLO5TAB4 PO; -ASPI81TA31 PO; +ATOR80TA PO; +MAGN400C PO; -MAGN400T6 PO
--- NOTE | 2017-07-15 20:00 | NUR ---
Pt c/o sob and chest pain x1 day
--- NOTE | 2017-07-15 20:10 | NUR ---
at bedside for MSE.
[2017-07-15] MEDS ORDERED: PANTOPRAZOLE SODIUM 40 MG VIAL IV ONE (20:15)
[2017-07-15] MEDS ORDERED: NITROGLYCERIN 0.4 MG/TAB BOTTLE SL ONE ×2 (20:15→21:00)
[2017-07-15] MEDS ORDERED: ONDANSETRON 4 MG/2 ML VIAL IV ONE (20:15)
[2017-07-15] MEDS ORDERED: diphenhydrAMINE 50 MG/1 ML VIAL IV ONE (20:15)
[2017-07-15] MEDS ORDERED: diphenhydrAMINE 25 MG/10 ML UDC ONE (20:59)
[2017-07-15] MEDS ORDERED: ONDANSETRON 4 MG/2 ML VIAL ONE (21:00)
[2017-07-15] MEDS ORDERED: PANTOPRAZOLE SODIUM 40 MG VIAL ONE (21:00)
[2017-07-15] MEDS ORDERED: diphenhydrAMINE 50 MG/1 ML VIAL ONE (21:01)
[2017-07-15 21:18] LABS: BASOPHILS % (AUTO) 0.6 % (0.0-2.0); EOSINOPHILS # (AUTO) 0.2 K/uL (0.0-0.7); EOSINOPHILS % (AUTO) 3.4 % (0.0-7.0); HEMATOCRIT 30.3 % (36.7-47.1); HEMOGLOBIN 10.4 g/dL (12.5-16.3); LYMPHOCYTES # (AUTO) 1.2 K/uL (20.0-40.0); LYMPHOCYTES % (AUTO) 16.2 % (20.5-51.5); MEAN CORPUSCULAR HEMOGLOBIN 29.1 uug (23.8-33.4); MEAN CORPUSCULAR HGB CONC 34 g/dL (32.5-36.3); MEAN CORPUSCULAR VOLUME 84.7 fL (73.0-96.2); MONOCYTES # (AUTO) 0.5 K/uL (2.0-10.0); MONOCYTES % (AUTO) 7.6 % (0.0-11.0); NEUTROPHILS # (AUTO) 5.2 K/uL (1.8-8.9); NEUTROPHILS % (AUTO) 72.2 % (38.5-71.5); PLATELET COUNT (AUTO) 200 K/uL (152-348); RED BLOOD CELL COUNT(AUTO) 3.58 MIL/uL (4.06-5.63); WHITE BLOOD COUNT (AUTO) 7.1 K/uL (3.6-10.2)
[2017-07-15 21:34] LABS: CARBON DIOXIDE 27 mmol/L (21-32); CHLORIDE 106 mmol/L (98-107); GLUCOSE 103 mg/dL (74-106); UREA NITROGEN, BLOOD 19 mg/dL (7-18)
[2017-07-15 21:38] LABS: ALANINE AMINOTRANSFERASE 34 U/L (16-63); ALKALINE PHOSPHATASE 81 U/L (50-136); ASPARTATE AMINOTRANSFERASE 29 U/L (15-37); BILIRUBIN,DIRECT < 0.1 mg/dL (0.0-0.2); BILIRUBIN,TOTAL 0.3 mg/dL (0.2-1.0); LIPASE 196 U/L (73-393); TOTAL PROTEIN, SERUM 6.6 g/dL (6.4-8.2)
--- NOTE | 2017-07-15 22:00 | NUR ---
pt resting in bed comfortably. no acute signs of distress noted
[2017-07-15] MEDS ORDERED: NITROGLYCERIN OINT 1 GM PACKET TP ONE ×2 (22:30→22:57)
[2017-07-16 00:11] LABS: *BILIRUBIN,URIN NEGATIVE (NEGATIVE); *BLOOD, URINE NEGATIVE (NEGATIVE); *CLARITY,URINE CLEAR (CLEAR); *COLOR,URINE YELLOW (YELLOW); *KETONES,URINE NEGATIVE (NEGATIVE); *PROTEIN,URINE NEGATIVE (NEGATIVE); *UROBILINOGEN,URINE 0.2 E.U./dl (NORMAL); LEUKOCYTE ESTERASE ,URINE NEGATIVE (NEGATIVE); NITRITE, URINE NEGATIVE (NEGATIVE); UGLUCOSE NEGATIVE (NEGATIVE)
[2017-07-16 00:29] LABS: RBC,URINE 0-3 /HPF (0-3); WBC,URINE 0-3 /HPF (0-3)
[2017-07-16 00:30] LABS: BACTERIA,URINE NONE SEEN /HPF (NONE SEEN); SQUAMOUS EPITHELIAL CELL,UR NONE SEEN /HPF (NONE SEEN)
[2017-07-16] MEDS ORDERED: diphenhydrAMINE 50 MG/1 ML VIAL IV ONE (00:30)
[2017-07-16] MEDS ORDERED: VANCOMYCIN IV 1,000 MG in IV DEXTROSE 5% 250 ML IV ONE (00:30)
[2017-07-16] MEDS ORDERED: diphenhydrAMINE 50 MG/1 ML VIAL ONE ×2 (00:59→04:17)
[2017-07-16] MEDS ORDERED: VANCOMYCIN IV 200 ML ONE (01:00)
[2017-07-16] MEDS ORDERED: MORPHINE SULFATE 2 MG/1 ML DISP.SYRIN IV ONE (01:15)
[2017-07-16] MEDS ORDERED: ONDANSETRON IV *ER 4 MG/2 ML VIAL IV ONE (01:15)
[2017-07-16] MEDS ORDERED: ONDANSETRON 4 MG/2 ML VIAL ONE (01:31)
[2017-07-16] MEDS ORDERED: MORPHINE SULFATE 4 MG/1 ML DISP.SYRIN ONE (01:31)
--- NOTE | 2017-07-16 01:40 | NUR ---
Report given to Good VASQUEZ
--- NOTE | 2017-07-16 03:00 | NUR ---
Pt. admitted to tele, under care of Dr. Dudley Belongs List completed
[2017-07-16 04:00] VITALS: BP 127/68
[2017-07-16] MEDS ORDERED: MECLIZINE HCL 12.5 MG TABLET PO PRN (04:00)
[2017-07-16] MEDS ORDERED: ACETAMINOPHEN 325 MG TABLET PO PRN (04:00)
[2017-07-16] MEDS ORDERED: ZOLPIDEM 5 MG TABLET PO PRN (04:00)
[2017-07-16] MEDS ORDERED: NITROGLYCERIN 0.4 MG/TAB BOTTLE SL PRN (04:00)
[2017-07-16] MEDS ORDERED: ONDANSETRON 4 MG/2 ML VIAL IV PRN (04:00)
[2017-07-16] MEDS ORDERED: HYDROCODONE/APAP 5-325MG TABLET PO PRN (04:00)
[2017-07-16] MEDS ORDERED: Z GUARD REMEDY PASTE 57 GM TUBE TOP PRN (04:00)
[2017-07-16] MEDS: diphenhydrAMINE 50 MG/1 ML VIAL IV PRN ×4 (04:23→21:20)
--- NOTE | 2017-07-16 05:57 | NUR ---
No changes t/o shift. Patient slept t/o shift. Tele Sinus katherine. Safety and comfort measures maintained t/o shift. Vital Signs stable. Will continue to monitor.
--- NOTE | 2017-07-16 08:00 | NUR ---
awake alert and oriented, denies of chest pain at this time, on room air, denies of any shortness of breath, tele SB 54, left arm slightly swollen and redness lesser as per pt, kept elevated on pillows, explained plan of care, verbalized understanding, call light within reach
[2017-07-16] MEDS: FERROUS SULFATE 325 MG TABEC PO SCH (08:41)
[2017-07-16] MEDS: RANOLAZINE 500 MG TAB.ER.12H PO SCH ×2 (08:41→20:29)
[2017-07-16] MEDS: LORATADINE 10 MG TABLET PO SCH (08:42)
[2017-07-16] MEDS: AMLODIPINE 5 MG TABLET PO SCH (08:43)
[2017-07-16] MEDS: CARVEDILOL 3.125 MG TABLET PO SCH ×2 (08:44→18:00)
[2017-07-16] MEDS: ISOSORBIDE MONONITRATE 60 MG TAB.SR.24H PO SCH (08:44)
[2017-07-16] MEDS: CLOPIDOGREL 75 MG TABLET PO SCH (08:48)
[2017-07-16] MEDS: PANTOPRAZOLE SODIUM 40 MG TABLET.DR PO SCH (08:48)
--- NOTE | 2017-07-16 12:35 | NUR ---
c/o chest pain, BP 106/60, medicated with NTG o.4mg as prn sl, will continue to monitor
--- NOTE | 2017-07-16 12:50 | NUR ---
states chest pain relieved, had lunch and with good appetite, ice pack in left arm
[2017-07-16 16:26] VITALS: BP 121/63
--- NOTE | 2017-07-16 18:52 | NUR ---
medicated for itching on the left arm this shift, no further chest pain noted, was medicated with Tylenol 650 mg po for headache with relief, all needs attended and met, SB 56, safety measures maintained, call light within reach
--- NOTE | 2017-07-16 19:30 | NUR ---
Received patient laying comfortably in bed. No acute distress noted. TELE sinus katherine. A&O x 4. Able to make needs known. Patient is on O2 2L NC. Noted left fore arm swelling and redness. Apparently got bitten by a spider. Ice pack in place. Urinal at bedside. Patient is able to ambulate but a little unsteady. Room is kept clutter free, bed is in low and locked position. Safety initiated. Call light within reach. Will continue to monitor.
--- NOTE | 2017-07-16 19:30 | NUR ---
PT RECEIVED IN BED, AWAKE. A/OX4. ABLE TO MAKE NEEDS KNOWN. V/S STABLE. IN NO ACUTE DISTRESS. NO C/O PAIN AT THIS TIME. IV INTACT AND PATENT. ON RA, TOLERATING WELL. AFEBRILE. PT C/O MILD ITCHING ON LEFT FOREARM, MD AWARE. AWAITING NEW ORDERS. SAFETY MEASURES IMPLEMENTED. CALL LIGHT WITHIN REACH.
--- NOTE | 2017-07-16 19:35 | NUR ---
PT SINUS FRANTZ AT 55-60 BPM ON THE TELE MONITOR.
[2017-07-16 20:08] VITALS: BP 111/62
[2017-07-16] MEDS: ATORVASTATIN 40 MG TABLET PO SCH (20:29)
[2017-07-16] MEDS: MAGNESIUM OXIDE 400 MG TABLET PO SCH (20:29)
[2017-07-16] MEDS ORDERED: HYDROCORTISONE 0.5% CREAM 28.35 GM TUBE TOP PRN (20:45)
[2017-07-16] MEDS ORDERED: Medication Not On Formulary EA (Atorvastatin Calcium (Lipitor) 80 MG) PO SCH (21:00)
[2017-07-16] MEDS ORDERED: PIPERACILLIN SODIUM/TAZO 3.375 GM VIAL ONE ×2 (23:08→23:32)
[2017-07-16] MEDS: PIPERACILLIN/TAZOBACTAM/D5W 3.375 G in PREMIXED 1 EACH IV SCH (23:13)
[2017-07-16] MEDS ORDERED: HYDROCORTISONE 1% CREAM 30 GM TUBE TP ONE ×2 (23:15→23:33)
[2017-07-16] MEDS ORDERED: HYDROCORTISONE 1% CREAM 30 GM TUBE TP PRN (23:15)
--- NOTE | 2017-07-16 23:15 | NUR ---
PT REQUEST TO TAKE SHOWER. PT MADE AWARE OF PROTOCOL. PT IS SINUS FRANTZ WITH 55BPM ON THE TELE MONITOR. EDUCATED ABOUT RISKS OF REMOVING TELE BOX AT THIS TIME. PT IV WRAPPED, TELE BOX REMOVED AND HELD.
[2017-07-17 00:17] VITALS: BP 106/57
[2017-07-17 04:00] VITALS: BP 112/68
[2017-07-17] MEDS: PIPERACILLIN/TAZOBACTAM/D5W 3.375 G in PREMIXED 1 EACH IV SCH ×3 (05:01→21:40)
--- NOTE | 2017-07-17 06:00 | NUR ---
END OF SHIFT NOTES. PT SLEPT INTERMITTENTLY THROUGHOUT SHIFT. IN STABLE CONDITION. IV ABX INFUSED. BENADRYL AND CORTISONE CREAM ADMINISTERED ORDERED. PT C/O OF LEFT FOREARM ITCHING CEASED. ON RA, TOLERATING WELL. AFEBRILE. SINUS FRANTZ AT 55-60 ON TELE MONITOR THROUGHOUT SHIFT. ALL NEEDS ATTENDED.SAFETY MAINTAINED. CALL LIGHT WITHIN REACH.
[2017-07-17] MEDS: PANTOPRAZOLE SODIUM 40 MG TABLET.DR PO SCH (06:01)
[2017-07-17 06:15] LABS: BASOPHILS % (AUTO) 0.3 % (0.0-2.0); EOSINOPHILS # (AUTO) 0.2 K/uL (0.0-0.7); EOSINOPHILS % (AUTO) 3.7 % (0.0-7.0); HEMATOCRIT 33.3 % (36.7-47.1); HEMOGLOBIN 11.3 g/dL (12.5-16.3); LYMPHOCYTES # (AUTO) 0.5 K/uL (20.0-40.0); LYMPHOCYTES % (AUTO) 8.2 % (20.5-51.5); MEAN CORPUSCULAR HGB CONC 34 g/dL (32.5-36.3); MEAN CORPUSCULAR VOLUME 85.4 fL (73.0-96.2); MONOCYTES # (AUTO) 0.4 K/uL (2.0-10.0); MONOCYTES % (AUTO) 6.2 % (0.0-11.0); NEUTROPHILS # (AUTO) 5.5 K/uL (1.8-8.9); NEUTROPHILS % (AUTO) 81.6 % (38.5-71.5); PLATELET COUNT (AUTO) 185 K/uL (152-348); WHITE BLOOD COUNT (AUTO) 6.7 K/uL (3.6-10.2)
[2017-07-17 06:33] LABS: CREATININE 1.1 mg/dL (0.6-1.3); MAGNESIUM 2.1 mg/dL (1.8-2.4); PHOSPHOROUS 3.8 mg/dL (2.5-4.9); POTASSIUM 4.2 mmol/L (3.5-5.1)
[2017-07-17] MEDS: LORATADINE 10 MG TABLET PO SCH (09:13)
[2017-07-17] MEDS: FERROUS SULFATE 325 MG TABEC PO SCH (09:13)
[2017-07-17] MEDS: ISOSORBIDE MONONITRATE 60 MG TAB.SR.24H PO SCH (09:14)
[2017-07-17] MEDS: AMLODIPINE 5 MG TABLET PO SCH (09:14)
[2017-07-17] MEDS: CARVEDILOL 3.125 MG TABLET PO SCH ×2 (09:15→19:05)
[2017-07-17] MEDS: RANOLAZINE 500 MG TAB.ER.12H PO SCH ×2 (09:15→21:01)
[2017-07-17] MEDS: CLOPIDOGREL 75 MG TABLET PO SCH (09:15)
[2017-07-17] MEDS ORDERED: HYDROCORTISONE 1% CREAM 30 GM TUBE TP PRN (09:34)
[2017-07-17] MEDS: VANCOMYCIN IV 1,500 MG in IV DEXTROSE 5% 500 ML IV SCH (10:18)
[2017-07-17 11:55] VITALS: BP 117/59
[2017-07-17 11:58] VITALS: BP 101/55
[2017-07-17] MEDS: diphenhydrAMINE 50 MG/1 ML VIAL IV PRN (14:13)
--- NOTE | 2017-07-17 15:36 | NUR ---
Clinical pharmacy note-Vancomycin dosing per pharmacy S: To start Vancomycin dosing on this patient for cellulitis O: BUN 17 Scr 1.1 WBC 6.7 Temp 98.4 Ht 6'1" Wt 205 lbs A/P: Patient had Vancomycin 1 gram in ER yesterday at 0048. Will continue Vancomycin 1500mg IV every 15hrs (first dose given today at 1000) and draw trough by 4th dose(not ordered yet) for expected trough around 15. Will monitor daily.
[2017-07-17 15:52] VITALS: BP 126/70
--- NOTE | 2017-07-17 18:55 | NUR ---
pt is resting in bed. bed at lowest locked position. pt c/o swelling in left arm, arm elevated and provided ice. Pt given vanco and Zosyn during shift. Pt shows no signs of respiratory distress at this time. pt stable, continue to monitor pt.
[2017-07-17 20:00] VITALS: BP 115/65
[2017-07-17] MEDS: MAGNESIUM OXIDE 400 MG TABLET PO SCH (21:00)
[2017-07-17] MEDS: ATORVASTATIN 40 MG TABLET PO SCH (21:00)
[2017-07-17] MEDS: MORPHINE SULFATE 4 MG/1 ML DISP.SYRIN IV PRN (21:01)
[2017-07-18] VITALS: BP 110/72
[2017-07-18] MEDS: VANCOMYCIN IV 1,500 MG in IV DEXTROSE 5% 500 ML IV SCH ×2 (01:20→18:09)
[2017-07-18] MEDS: diphenhydrAMINE 50 MG/1 ML VIAL IV PRN ×3 (03:33→16:28)
[2017-07-18 04:00] VITALS: BP 122/65
[2017-07-18] MEDS: PIPERACILLIN/TAZOBACTAM/D5W 3.375 G in PREMIXED 1 EACH IV SCH ×3 (05:17→22:58)
--- NOTE | 2017-07-18 05:21 | NUR ---
No changes t/o shift. No acute distress noted. C/O pain in the left arm, meds given, stated relief. Tele SR. Patient remains A&O x 4. No c/o Chest Pain. No reactions on IV ABX. Urinating Well. Safety and comfort measures maintained t/o shift. Vital signs stable. All meds given. All needs met.
[2017-07-18] MEDS: PANTOPRAZOLE SODIUM 40 MG TABLET.DR PO SCH (06:16)
[2017-07-18 07:26] LABS: BASOPHILS % (AUTO) 0.2 % (0.0-2.0); EOSINOPHILS # (AUTO) 0.2 K/uL (0.0-0.7); EOSINOPHILS % (AUTO) 2.9 % (0.0-7.0); HEMATOCRIT 34.5 % (36.7-47.1); HEMOGLOBIN 11.7 g/dL (12.5-16.3); LYMPHOCYTES # (AUTO) 0.7 K/uL (20.0-40.0); MEAN CORPUSCULAR HEMOGLOBIN 28.8 uug (23.8-33.4); MEAN CORPUSCULAR HGB CONC 34 g/dL (32.5-36.3); MEAN CORPUSCULAR VOLUME 85.3 fL (73.0-96.2); MONOCYTES # (AUTO) 0.5 K/uL (2.0-10.0); MONOCYTES % (AUTO) 6.3 % (0.0-11.0); NEUTROPHILS # (AUTO) 6.1 K/uL (1.8-8.9); NEUTROPHILS % (AUTO) 81.6 % (38.5-71.5); PLATELET COUNT (AUTO) 184 K/uL (152-348); RED BLOOD CELL COUNT(AUTO) 4.04 MIL/uL (4.06-5.63); WHITE BLOOD COUNT (AUTO) 7.5 K/uL (3.6-10.2)
[2017-07-18 07:50] LABS: CREATININE 1.2 mg/dL (0.6-1.3); MAGNESIUM 2.3 mg/dL (1.8-2.4); PHOSPHOROUS 4.6 mg/dL (2.5-4.9); POTASSIUM 4.1 mmol/L (3.5-5.1)
--- NOTE | 2017-07-18 08:00 | NUR ---
PT is in no acute distress. Discussed plan of care with pt re: proper management of left arm swelling and itchin, fall precaution, and proper pain management. PT agreeable with plan of care. Pt ambulatory with good balance and gait. Call light is within reach.
[2017-07-18] MEDS: AMLODIPINE 5 MG TABLET PO SCH (09:06)
[2017-07-18] MEDS: FERROUS SULFATE 325 MG TABEC PO SCH (09:06)
[2017-07-18] MEDS: LORATADINE 10 MG TABLET PO SCH (09:06)
[2017-07-18] MEDS: ISOSORBIDE MONONITRATE 60 MG TAB.SR.24H PO SCH (09:07)
[2017-07-18] MEDS: CLOPIDOGREL 75 MG TABLET PO SCH (09:08)
[2017-07-18] MEDS: RANOLAZINE 500 MG TAB.ER.12H PO SCH ×2 (09:08→21:00)
[2017-07-18] MEDS: CARVEDILOL 3.125 MG TABLET PO SCH ×2 (09:09→18:07)
--- NOTE | 2017-07-18 09:37 | NUR ---
C/O OF LEFT ARM ITCHINESS. GIVEN BENADRYL PER ORDER
--- NOTE | 2017-07-18 10:00 | NUR ---
Pt states benadryl effective. itching gone
[2017-07-18 11:42] VITALS: BP 106/61
--- NOTE | 2017-07-18 13:07 | NUR ---
Clinical pharmacy note-Vancomycin dosing per pharmacy S: To continue Vancomycin dosing on this patient for cellulitis O: BUN 19 Scr 1.2 WBC 7.5 Temp 98. Ht 6'1" Wt 205 lbs A/P: Since srcr increased, will change dose to vanco 1500mg IVPB q17 h for predicted vanco trough level of 15 mcg/ml at steady state. Second dose is due today at 1800. Plan to trough by 4th dose(not ordered yet). Will adjust dose for renal function if needed. Will monitor daily.
[2017-07-18 15:21] VITALS: BP 112/58
--- NOTE | 2017-07-18 18:30 | NUR ---
Plan of care effective. Left arm less swollen and less itchy from am secondary to ICING, elevation, and benadryl iv and hydrocortisone cream. no fall noted this shift./
[2017-07-18 20:01] VITALS: BP 108/64
[2017-07-18] MEDS: MORPHINE SULFATE 4 MG/1 ML DISP.SYRIN IV PRN (20:55)
[2017-07-18] MEDS: ATORVASTATIN 40 MG TABLET PO SCH (20:56)
[2017-07-18] MEDS: MAGNESIUM OXIDE 400 MG TABLET PO SCH (20:56)
[2017-07-19 04:41] VITALS: BP 141/76
[2017-07-19] MEDS: PIPERACILLIN/TAZOBACTAM/D5W 3.375 G in PREMIXED 1 EACH IV SCH ×2 (05:26→13:15)
--- NOTE | 2017-07-19 06:00 | NUR ---
pt slept well overnight gets sleeping meds,continue with antibiotics, chest pain remains the same and gets morphine.voding well,vss,afebrile. all needs attended.
[2017-07-19] MEDS: PANTOPRAZOLE SODIUM 40 MG TABLET.DR PO SCH (06:29)
--- NOTE | 2017-07-19 08:00 | NUR ---
PT RECEIVED IN BED, AWAKE. A/OX4. ABLE TO MAKE NEEDS KNOWN. V/S STABLE. IN NO ACUTE DISTRESS. NO C/O PAIN AT THIS TIME. IV INTACT AND PATENT. ON RA, SAFETY MEASURES IMPLEMENTED. CALL LIGHT WITHIN REACH.
[2017-07-19] MEDS: CLOPIDOGREL 75 MG TABLET PO SCH (08:07)
[2017-07-19] MEDS: CARVEDILOL 3.125 MG TABLET PO SCH (08:08)
[2017-07-19] MEDS: AMLODIPINE 5 MG TABLET PO SCH (08:08)
[2017-07-19] MEDS: LORATADINE 10 MG TABLET PO SCH (08:08)
[2017-07-19] MEDS: FERROUS SULFATE 325 MG TABEC PO SCH (08:08)
[2017-07-19] MEDS: ISOSORBIDE MONONITRATE 60 MG TAB.SR.24H PO SCH (08:08)
[2017-07-19] MEDS: RANOLAZINE 500 MG TAB.ER.12H PO SCH (08:30)
[2017-07-19] MEDS: VANCOMYCIN IV 1,500 MG in IV DEXTROSE 5% 500 ML IV SCH (11:23)
[2017-07-19 11:26] VITALS: BP 146/71
[2017-07-19] MEDS ORDERED: DOXY100C2 PO (12:04)
--- NOTE | 2017-07-19 14:00 | NUR ---
pt is resting in bed. bed at lowest locked position. pt c/o swelling in left arm, arm elevated and provided ice. Pt given vancomycin and Zosyn during shift. Pt shows no signs of respiratory distress at this time. pt stable, continue to monitor pt.
--- NOTE | 2017-07-19 14:55 | NUR ---
Clinical pharmacy note-Vancomycin dosing per pharmacy S: To continue Vancomycin dosing on this patient for cellulitis O: BUN 19 (07/18) Scr 1.2 (07/18) WBC 7.5(07/18) Temp 98.1 Ht 6'1" Wt 205 lbs A/P: Will continu vanco 1500mg IVPB q17 h for predicted vanco trough level of 15 mcg/ml at steady state. third dose was today at 1100. Ordered trough, due at 0330 tomorrow early am. RN endorsed to hold if level >20. Will check level in am and adjust as needed. Will adjust dose for renal function if needed. Will monitor daily.
--- NOTE | 2017-07-19 15:23 | NUR ---
d/c orders received noted and carried out,d/c heplock per md orders.d/c instructions and education given to the pt.pt refused to cut and removed his name band,md and charge nurse made aware.pt left the facility via walking through the hospital in stable condition.
== END 2017-07-19 15:20 | disposition home or self-care (01) | DRG 197 ==
LOC: ER 19:27 → TELE 07-16 02:24 → MED 07-18 18:01
PROVIDERS: ADMIT Internal Medicine; ATTEND Internal Medicine
DX: I80.8 Phlebitis and thrombophlebitis of other sites (principal); E27.8 Other specified disorders of adrenal gland; I25.119 Atherosclerotic heart disease of native coronary artery with unspecified angina pectoris; N28.1 Cyst of kidney, acquired; J98.11 Atelectasis; I25.2 Old myocardial infarction; M51.36 Other intervertebral disc degeneration, lumbar region; Z95.5 Presence of coronary angioplasty implant and graft; M48.061 Spinal stenosis, lumbar region without neurogenic claudication; K40.91 Unilateral inguinal hernia, without obstruction or gangrene, recurrent; N40.0 Benign prostatic hyperplasia without lower urinary tract symptoms; J30.9 Allergic rhinitis, unspecified; Z82.49 Family history of ischemic heart disease and other diseases of the circulatory system; Z87.891 Personal history of nicotine dependence; Z79.899 Other long term (current) drug therapy; K21.9 Gastro-esophageal reflux disease without esophagitis; I70.0 Atherosclerosis of aorta; E78.5 Hyperlipidemia, unspecified; E66.9 Obesity, unspecified; Z68.27 Body mass index [BMI] 27.0-27.9, adult; L03.114 Cellulitis of left upper limb; D64.9 Anemia, unspecified
CPT/HCPCS: 36415; 70030-TC; 71045; 82378; 83550; 83690; 83735; 84100; 85025; 85730; 93005; A4663; C9113; J1200; J2270; J2405; J2543; J3370; J7050; J7060; Q0163

== ENCOUNTER 2017-09-27 21:29 | Inpatient (IN) | payer MEDICARE, OTHER ==
[~2017-09-27] VITALS: Ht 185.4 cm; Wt 92.5 kg
[~2017-09-27 21:29] MED LIST changes: -ATOR80TA26 PO; +DOXY100C2 PO
--- NOTE | 2017-09-27 21:35 | NUR ---
DR FRANCISCO, ERICA MD AT BEDSIDE FOR MSE.
--- NOTE | 2017-09-27 21:38 | NUR ---
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 STATES HE FELT DIZZY, AND CURRENTLY FEELS NAUSEOUS. DENIES VOMITING. DENIES SYNCOPAL EPISODE. HX OF STENTS AND NSTEMIS. PLACED ON MONITOR AND PULSE OX.
[2017-09-27] MEDS ORDERED: NITROGLYCERIN OINT 1 GM PACKET TP ONE ×2 (21:45→21:48)
[2017-09-27] MEDS ORDERED: ASPIRIN 325 MG TABLET PO ONE (21:45)
[2017-09-27] MEDS ORDERED: ASPIRIN 325 MG TABLET ONE (21:52)
--- NOTE | 2017-09-27 21:56 | NUR ---
XRAY AT PT BEDSIDE.
[2017-09-27] MEDS ORDERED: MORPHINE SULFATE 4 MG/1 ML DISP.SYRIN IV ONE (22:00)
[2017-09-27] MEDS ORDERED: ONDANSETRON IV *ER 4 MG/2 ML VIAL IV ONE ×2 (22:00→23:00)
[2017-09-27] MEDS ORDERED: MORPHINE SULFATE 4 MG/1 ML DISP.SYRIN ONE (22:07)
[2017-09-27] MEDS ORDERED: ONDANSETRON 4 MG/2 ML VIAL ONE ×2 (22:07→23:15)
[2017-09-27 22:15] LABS: BASOPHILS % (AUTO) 0.7 % (0.0-2.0); EOSINOPHILS # (AUTO) 0.1 K/uL (0.0-0.7); EOSINOPHILS % (AUTO) 2.3 % (0.0-7.0); HEMATOCRIT 30.9 % (36.7-47.1); HEMOGLOBIN 10.5 g/dL (12.5-16.3); LYMPHOCYTES # (AUTO) 1.1 K/uL (20.0-40.0); LYMPHOCYTES % (AUTO) 18.5 % (20.5-51.5); MEAN CORPUSCULAR HEMOGLOBIN 28.9 uug (23.8-33.4); MEAN CORPUSCULAR HGB CONC 34 g/dL (32.5-36.3); MEAN CORPUSCULAR VOLUME 84.8 fL (73.0-96.2); MONOCYTES # (AUTO) 0.4 K/uL (2.0-10.0); MONOCYTES % (AUTO) 6.7 % (0.0-11.0); NEUTROPHILS # (AUTO) 4.2 K/uL (1.8-8.9); NEUTROPHILS % (AUTO) 71.8 % (38.5-71.5); PLATELET COUNT (AUTO) 233 K/uL (152-348); RED BLOOD CELL COUNT(AUTO) 3.64 MIL/uL (4.06-5.63); WHITE BLOOD COUNT (AUTO) 5.8 K/uL (3.6-10.2)
[2017-09-27 22:24] LABS: CREATININE 1.1 mg/dL (0.6-1.3); POTASSIUM 3.7 mmol/L (3.5-5.1)
[2017-09-27 22:36] LABS: BILIRUBIN,DIRECT 0.1 mg/dL (0.0-0.2); BILIRUBIN,TOTAL 0.3 mg/dL (0.2-1.0)
--- NOTE | 2017-09-27 22:38 | NUR ---
PT REPOSITIONED IN BED FOR COMFORT. PROVIDED BLANKED UPON REQUEST.
[2017-09-27] MEDS ORDERED: IV NORMAL SALINE 1000 ML BAG IV ONE (23:00)
[2017-09-27] MEDS ORDERED: NORMAL SALINE FLUSH 10 ML DISP.SYRIN ONE (23:04)
[2017-09-27] MEDS ORDERED: IOHEXOL 350 100 ML INFUS..BTL ONE (23:04)
[2017-09-27] MEDS ORDERED: IV NORMAL SALINE 100 ML ONE (23:04)
--- NOTE | 2017-09-27 23:20 | NUR ---
PT TAKEN DOWN TO CT VIA WHEELCHAIR. VSS. NO DISTRESS NOTED.
--- NOTE | 2017-09-28 00:29 | NUR ---
PT RESTING IN BED W/ EYES CLOSED. NO SIGNS OF DISTRESS NOTED.
[2017-09-28] MEDS ORDERED: MAG HYDROX/AL HYDROX/SIMETH 30 ML LIQUID UDC PO PRN (01:30)
[2017-09-28] MEDS ORDERED: NITROGLYCERIN 0.4 MG/TAB BOTTLE SL PRN (01:30)
[2017-09-28 02:25] VITALS: BP 119/70
--- NOTE | 2017-09-28 02:28 | NUR ---
Pt. admitted to TELE, under care of /BRAD CUSTOMER SERVICE SPECIALIST Belongs List completed
--- NOTE | 2017-09-28 02:35 | NUR ---
NEW ADMIT FROM ER, ADMITTED FOR CHEST PAIN, PATIENT DENIES CHEST PAIN OR ANY DISTRESS ON ASSESSMENT. NO S/S OF DISTRESS OR DISCOMFORT NOTED, VSS STABLE. SAFETY AND COMFORT MEASURES IN PLACE, WILL CONTINUE TO MONITOR PATIENT
[2017-09-28 04:00] VITALS: BP 120/72
--- NOTE | 2017-09-28 05:57 | NUR ---
PATIENT SLEPT WELL THROUGH THE SHIFT, NO C/O CHEST PAIN OR SOB, NO DISTRESS NOTED ON THIS SHIFT. VSS STABLE, SAFETY AND COMFORT MEASURES MAINTAINED, CALL LIGHT LEFT WITHIN PATIENT'S REACH
[2017-09-28] MEDS: PANTOPRAZOLE SODIUM 40 MG TABLET.DR PO SCH (07:13)
--- NOTE | 2017-09-28 07:50 | NUR ---
Awake, alert, oriented x 4. Carotid ultrasound and venous doppler of LE done at bedside. Tele SR
[2017-09-28] MEDS ORDERED: PANTOPRAZOLE SODIUM 40 MG TABLET.DR PO SCH (09:00)
[2017-09-28] MEDS ORDERED: CARVEDILOL 3.125 MG TABLET PO SCH (09:00)
[2017-09-28] MEDS: LORATADINE 10 MG TABLET PO SCH (09:18)
[2017-09-28] MEDS: ASPIRIN EC 325 MG TABLET.DR PO SCH (09:18)
[2017-09-28] MEDS: CARVEDILOL 3.125 MG TABLET PO SCH ×2 (09:19→17:44)
[2017-09-28] MEDS: RANOLAZINE 500 MG TAB.ER.12H PO SCH ×2 (09:19→20:35)
[2017-09-28] MEDS: AMLODIPINE 5 MG TABLET PO SCH (09:20)
[2017-09-28] MEDS: ISOSORBIDE MONONITRATE 60 MG TAB.SR.24H PO SCH (09:20)
[2017-09-28] MEDS: CLOPIDOGREL 75 MG TABLET PO SCH (09:20)
[2017-09-28] MEDS: ENOXAPARIN SODIUM 40 MG/0.4 ML DISP.SYRIN SQ SCH (09:22)
[2017-09-28 11:46] VITALS: BP 124/45
[2017-09-28 12:06] VITALS: BP 104/61
--- NOTE | 2017-09-28 12:30 | NUR ---
Eating lunch fairly. Denies discomfort
--- NOTE | 2017-09-28 15:21 | NUR ---
Sleeping most of the time between care
[2017-09-28 16:12] VITALS: BP 101/58
[2017-09-28] MEDS: MECLIZINE HCL 12.5 MG TABLET PO PRN (17:46)
--- NOTE | 2017-09-28 18:29 | NUR ---
Eating fairly. Denies chest pain. Complaining of dizziness. Antivert po given.
--- NOTE | 2017-09-28 20:00 | NUR ---
PATIENT AWAKE IN BED AAOX3, HE DENIES PAIN OR ANY DISTRESS, NO C/O CHEST PAIN ON ASSESSMENT. SAFETY AND COMFORT MEASURES IN PLACE. NO CONCERNS AT THIS TIME, PATIENT SEEN BY
[2017-09-28 20:29] VITALS: BP 103/62
[2017-09-28] MEDS: MAGNESIUM OXIDE 400 MG TABLET PO SCH (20:31)
[2017-09-28] MEDS: ATORVASTATIN 40 MG TABLET PO SCH (20:35)
[2017-09-29 05:13] VITALS: BP 104/53
--- NOTE | 2017-09-29 05:51 | NUR ---
PATIENT SLEPT MOST OF THE SHIFT, HE DENIED PAIN OR ANY DISTRESS. NO C/O OF CHEST PAINS, NO DIZZINESS ON THIS SHIFT, VSS STABLE. SAFETY MEASURES MAINTAINED AT ALL TIMES
[2017-09-29] MEDS: PANTOPRAZOLE SODIUM 40 MG TABLET.DR PO SCH (06:15)
[2017-09-29 06:30] LABS: CREATININE 1.1 mg/dL (0.6-1.3); MAGNESIUM 2.4 mg/dL (1.8-2.4); PHOSPHOROUS 4.2 mg/dL (2.5-4.9)
[2017-09-29] MEDS: MORPHINE SULFATE 2 MG/1 ML DISP.SYRIN IV PRN (06:59)
[2017-09-29 07:07] LABS: BASOPHILS % (AUTO) 0.6 % (0.0-2.0); EOSINOPHILS # (AUTO) 0.2 K/uL (0.0-0.7); HEMATOCRIT 30.5 % (36.7-47.1); HEMOGLOBIN 10.7 g/dL (12.5-16.3); LYMPHOCYTES # (AUTO) 0.9 K/uL (20.0-40.0); LYMPHOCYTES % (AUTO) 15.6 % (20.5-51.5); MEAN CORPUSCULAR HEMOGLOBIN 29.5 uug (23.8-33.4); MEAN CORPUSCULAR HGB CONC 35 g/dL (32.5-36.3); MEAN CORPUSCULAR VOLUME 84.5 fL (73.0-96.2); MONOCYTES # (AUTO) 0.4 K/uL (2.0-10.0); MONOCYTES % (AUTO) 7.6 % (0.0-11.0); NEUTROPHILS % (AUTO) 73.2 % (38.5-71.5); PLATELET COUNT (AUTO) 194 K/uL (152-348); RED BLOOD CELL COUNT(AUTO) 3.61 MIL/uL (4.06-5.63); WHITE BLOOD COUNT (AUTO) 5.5 K/uL (3.6-10.2)
--- NOTE | 2017-09-29 07:28 | NUR ---
Received pt sleeping in bed, easily arousable. Asked pt about his chest pain and to rate it, states it is a 2/10 after the morphine that was given from previous nurse. No immediate SOB, distress or discomfort noted. Pt is able to verbalize needs at this time. Bed at lowest position for safety and call light within reach for assistance
[2017-09-29] MEDS: CARVEDILOL 3.125 MG TABLET PO SCH ×2 (08:15→18:00)
[2017-09-29] MEDS: RANOLAZINE 500 MG TAB.ER.12H PO SCH ×2 (09:12→20:17)
[2017-09-29] MEDS: ASPIRIN EC 325 MG TABLET.DR PO SCH (09:12)
[2017-09-29] MEDS: AMLODIPINE 5 MG TABLET PO SCH (09:13)
[2017-09-29] MEDS: ISOSORBIDE MONONITRATE 60 MG TAB.SR.24H PO SCH (09:13)
[2017-09-29] MEDS: CLOPIDOGREL 75 MG TABLET PO SCH (09:14)
[2017-09-29] MEDS: LORATADINE 10 MG TABLET PO SCH (09:14)
[2017-09-29] MEDS: ENOXAPARIN SODIUM 40 MG/0.4 ML DISP.SYRIN SQ SCH (09:16)
[2017-09-29 11:45] VITALS: BP 114/64
[2017-09-29] MEDS: MECLIZINE HCL 12.5 MG TABLET PO PRN ×2 (15:04→21:20)
[2017-09-29 15:55] VITALS: BP 98/56
--- NOTE | 2017-09-29 18:57 | NUR ---
End of shift notes: Pt has been compliant with nursing care and medications. No pain at this time, pt is awake, alert and oriented times 4, ambulatory with minimal weakness noted. Pt took a shower today. No pain medications given. Pt stated dizziness in the afternoon and medication given. No immediate s/s of pain, distress, discomfort or SOB. Bed at lowest position for safety and ricco light within reach for assistance. No Iv hydration running at this time. No O2 in use. Pt is watching television and comfortable in bed.
--- NOTE | 2017-09-29 20:00 | NUR ---
RECEIVED PATIENT AWAKE IN BED. A/O X4. DENIES ANY PAIN OR DISCOMFORT. NO RESP. DISTRESS NOTED. ON RA. H/L INTACT AND PATENT. PATIENT C/O DIZZINESS/VERTIGO. AWARE ANTIVERT IS NOT DUE AT THIS TIME. SPOKE WITH DR. LUNA AND HAD MEDICATION CHANGED TO Q6 PRN. PATIENT INFORMED AND VERBALIZED UNDERSTANDING. PATIENT ON FALL PRECAUTIONS. CALL LIGHT IN REACH. ALL NEEDS ATTENDED. WILL CONTINUE TO MONITOR AND ASSESS.
[2017-09-29] MEDS: ATORVASTATIN 40 MG TABLET PO SCH (20:17)
[2017-09-29] MEDS: MAGNESIUM OXIDE 400 MG TABLET PO SCH (20:17)
[2017-09-29 20:19] VITALS: BP 110/68
[2017-09-30 05:08] VITALS: BP 126/68
[2017-09-30] MEDS: PANTOPRAZOLE SODIUM 40 MG TABLET.DR PO SCH (06:24)
--- NOTE | 2017-09-30 06:27 | NUR ---
PATIENT RESTING IN BED. SLEPT WELL THROUGHOUT THE NIGHT. VSS. DENIES CHEST PAIN OR ANY OTHER DISCOMFORT. CALL LIGHT IN REACH. BED ALARM ON. ALL NEEDS ATTENDED. WILL CONTINUE TO MONITOR AND ASSES.
[2017-09-30] MEDS: MORPHINE SULFATE 2 MG/1 ML DISP.SYRIN IV PRN (07:08)
--- NOTE | 2017-09-30 07:10 | NUR ---
received pt awake, alert and oriented times 4. Pt is upright position in bed with so immediate s/s of SOB, distress or discomfort. Pt states she has pain at a 2/10 pain scale but tolerable, refused medications for pain. Pt states she feels better. Bed at lowest position for safety and call light within reach for assistance Addendum: 09/30/17 at 0833 by ARABELLA BISHOP RN Pt is a he, type-o Pain states he feels better after morphine was given from the night charge nurse. Pt states he feels dizzy, Antivert will be given as ordered and as soon as possible. Pt was informed to make sure he calls for assistance when getting up.
--- NOTE | 2017-09-30 07:10 | NUR ---
PATIENT AWAKE IN BED. C/O CHEST PAIN. DENIES ANY RADIATING DOWN THE ARMS. PATIENT ASKING FOR MORPHINE, BP TAKEN AND VS ARE WNL. PATIENT GIVEN MORPHINE 1MG IV PER DONOR RELATIONS MANAGER, ALL NEEDS ATTENDED.
[2017-09-30] MEDS: CARVEDILOL 3.125 MG TABLET PO SCH ×2 (07:48→18:00)
[2017-09-30] MEDS: MECLIZINE HCL 12.5 MG TABLET PO PRN ×3 (07:49→20:19)
[2017-09-30] MEDS: CLOPIDOGREL 75 MG TABLET PO SCH (08:56)
[2017-09-30] MEDS: ASPIRIN EC 325 MG TABLET.DR PO SCH (08:56)
[2017-09-30] MEDS: ISOSORBIDE MONONITRATE 60 MG TAB.SR.24H PO SCH (08:57)
[2017-09-30] MEDS: RANOLAZINE 500 MG TAB.ER.12H PO SCH ×2 (08:57→20:18)
[2017-09-30] MEDS: LORATADINE 10 MG TABLET PO SCH (08:57)
[2017-09-30] MEDS: ENOXAPARIN SODIUM 40 MG/0.4 ML DISP.SYRIN SQ SCH (09:00)
[2017-09-30] MEDS: AMLODIPINE 5 MG TABLET PO SCH (09:00)
--- NOTE | 2017-09-30 10:00 | NUR ---
Dr chandler pt is requesting Vitamin B12
[2017-09-30 11:10] VITALS: BP 120/69
[2017-09-30] MEDS: CYANOCOBALAMIN 1000 MCG/ML VIAL IM SCH (14:05)
--- NOTE | 2017-09-30 14:23 | NUR ---
Vitamin B12 given as requested by pt and as ordered by Dr. Preston given, pt states he still feels dizzy.
--- NOTE | 2017-09-30 15:10 | NUR ---
Pt request to walk, walked and guided pt down the hallway and advised him to walk alongside the wall in case he felt dizzy. Pt stated he felt dizzy, grabbed a walker and walked back to his room.
[2017-09-30 15:20] VITALS: BP 104/70
--- NOTE | 2017-09-30 18:00 | NUR ---
End of shift notes: Pt refused 1800 BP medication (BP 116/65 HR 65 stated it makes him dizzy. Informed him about his rights, risk and benefits of medication. Pt still refused. Pt asked for addition nourishment and offered him a tuna sandwich and coffee. Pt is noted to be in bed, comfortable watching television. No apparent s/s of pain, distress, discomfort or SOB. Pt is able to verbalize needs. Addendum: 09/30/17 at 1839 by ARABELLA BISHOP RN BP 116/63 HR 65
[2017-09-30 19:47] VITALS: BP 112/65
--- NOTE | 2017-09-30 20:00 | NUR ---
RECEIVED PATIENT AWAKE IN BED WATCHING TV. PATIENT IS A/O X4. DENIES PAIN OR DISCOMFORT. NO RESP. DISTRESS NOTED. VSS. DENIES ANY CHEST PAIN. CALL LIGHT IN REACH. ALL NEEDS ATTENDED. WILL CONTINUE TO MONITOR.
[2017-09-30] MEDS: ATORVASTATIN 40 MG TABLET PO SCH (20:18)
[2017-09-30] MEDS: MAGNESIUM OXIDE 400 MG TABLET PO SCH (20:18)
[2017-10-01 04:00] VITALS: BP 124/64
[2017-10-01] MEDS: PANTOPRAZOLE SODIUM 40 MG TABLET.DR PO SCH (06:21)
[2017-10-01] MEDS: LORATADINE 10 MG TABLET PO SCH (08:09)
[2017-10-01] MEDS: AMLODIPINE 5 MG TABLET PO SCH (08:09)
[2017-10-01] MEDS: CYANOCOBALAMIN 1000 MCG/ML VIAL IM SCH (08:09)
[2017-10-01] MEDS: RANOLAZINE 500 MG TAB.ER.12H PO SCH ×2 (08:09→21:45)
[2017-10-01] MEDS: ISOSORBIDE MONONITRATE 60 MG TAB.SR.24H PO SCH (08:09)
[2017-10-01] MEDS: CLOPIDOGREL 75 MG TABLET PO SCH (08:09)
[2017-10-01] MEDS: ASPIRIN EC 325 MG TABLET.DR PO SCH (08:09)
[2017-10-01] MEDS: CARVEDILOL 3.125 MG TABLET PO SCH ×2 (08:10→17:01)
[2017-10-01] MEDS: ENOXAPARIN SODIUM 40 MG/0.4 ML DISP.SYRIN SQ SCH (08:11)
[2017-10-01 11:07] VITALS: BP 116/61
[2017-10-01 14:10] LABS: CREATININE 1.2 mg/dL (0.6-1.3)
[2017-10-01] MEDS ORDERED: IOHEXOL 350 100 ML INFUS..BTL ONE (14:24)
[2017-10-01] MEDS ORDERED: IV NORMAL SALINE 100 ML ONE (14:25)
[2017-10-01 15:16] VITALS: BP 106/67
[2017-10-01] MEDS ORDERED: NORMAL SALINE FLUSH 10 ML DISP.SYRIN ONE (16:25)
[2017-10-01] MEDS: MECLIZINE HCL 12.5 MG TABLET PO PRN (18:18)
[2017-10-01 20:00] VITALS: BP 122/64
[2017-10-01] MEDS: MAGNESIUM OXIDE 400 MG TABLET PO SCH (21:45)
[2017-10-01] MEDS: ATORVASTATIN 40 MG TABLET PO SCH (21:45)
[2017-10-02 04:00] VITALS: BP 121/67
[2017-10-02] MEDS: PANTOPRAZOLE SODIUM 40 MG TABLET.DR PO SCH (06:22)
[2017-10-02] MEDS: CARVEDILOL 3.125 MG TABLET PO SCH (07:48)
--- NOTE | 2017-10-02 07:49 | NUR ---
Received pt awake, alert and oriented times 4. No pain stated as of right now, no apparent s/s of distress, discomfort or SOB. Pt refused BP med, BP 113/71 HR 58. No IV hydration running, pt is on RA, pt is able to make needs known
[2017-10-02] MEDS: AMLODIPINE 5 MG TABLET PO SCH (08:56)
[2017-10-02] MEDS: RANOLAZINE 500 MG TAB.ER.12H PO SCH (08:57)
[2017-10-02] MEDS: ASPIRIN EC 325 MG TABLET.DR PO SCH (08:57)
[2017-10-02] MEDS: CYANOCOBALAMIN 1000 MCG/ML VIAL IM SCH (08:58)
[2017-10-02] MEDS: ISOSORBIDE MONONITRATE 60 MG TAB.SR.24H PO SCH (08:58)
[2017-10-02] MEDS: LORATADINE 10 MG TABLET PO SCH (08:59)
[2017-10-02] MEDS: MECLIZINE HCL 12.5 MG TABLET PO PRN (08:59)
[2017-10-02] MEDS: CLOPIDOGREL 75 MG TABLET PO SCH (09:02)
[2017-10-02] MEDS: ENOXAPARIN SODIUM 40 MG/0.4 ML DISP.SYRIN SQ SCH (09:03)
[2017-10-02 11:18] VITALS: BP 124/69
--- NOTE | 2017-10-02 13:17 | NUR ---
Pt is being discharge with orders, no apparent s/s of pain, distress, discomfort or SOB. Pt has signed all discharge papers and personal belongings list. ID band and IV line removed.
== END 2017-10-02 15:40 | disposition home or self-care (01) | DRG 111 ==
LOC: ER 21:30 → TELE 09-28 01:30 → MED 09-28 17:34
PROVIDERS: ADMIT Internal Medicine; ATTEND Internal Medicine
DX: H81.10 Benign paroxysmal vertigo, unspecified ear (principal); E27.8 Other specified disorders of adrenal gland; I11.9 Hypertensive heart disease without heart failure; I25.119 Atherosclerotic heart disease of native coronary artery with unspecified angina pectoris; D64.9 Anemia, unspecified; N28.1 Cyst of kidney, acquired; D18.09 Hemangioma of other sites; Z95.5 Presence of coronary angioplasty implant and graft; K40.90 Unilateral inguinal hernia, without obstruction or gangrene, not specified as recurrent; K21.9 Gastro-esophageal reflux disease without esophagitis; J30.9 Allergic rhinitis, unspecified; M51.36 Other intervertebral disc degeneration, lumbar region; M48.061 Spinal stenosis, lumbar region without neurogenic claudication; I25.2 Old myocardial infarction; Z79.899 Other long term (current) drug therapy; Z87.891 Personal history of nicotine dependence; Z82.49 Family history of ischemic heart disease and other diseases of the circulatory system; R79.1 Abnormal coagulation profile; I70.0 Atherosclerosis of aorta; E66.9 Obesity, unspecified; Z68.26 Body mass index [BMI] 26.0-26.9, adult; E78.5 Hyperlipidemia, unspecified; S62.92XD Unspecified fracture of left hand, subsequent encounter for fracture with routine healing; W19.XXXD Unspecified fall, subsequent encounter
CPT/HCPCS: 36415; 70030-TC; 71045; 71275; 83605; 83735; 84100; 84520; 85025; 85730; 87040; 93005; 93307; 93880; A4663; J1650; J2270; J2405; J3420; J3490; J7030; J8597; Q9967

== ENCOUNTER 2017-10-14 18:15 | Inpatient (IN) | payer OTHER ==
[~2017-10-14] VITALS: Ht 182.9 cm; Wt 94.3 kg
[2017-10-14] MEDS ORDERED: NITROGLYCERIN OINT 1 GM PACKET TP ONE ×2 (18:30→18:41)
[2017-10-14] MEDS ORDERED: NITROGLYCERIN 0.4 MG/TAB BOTTLE SL ONE ×2 (18:30→18:41)
[2017-10-14] MEDS ORDERED: ASPIRIN 81 MG TAB.CHEW PO ONE (18:30)
[2017-10-14] MEDS ORDERED: METO25TA6 PO (18:38)
[2017-10-14] MEDS ORDERED: PERM60CR4 TP (18:38)
[2017-10-14] MEDS ORDERED: ONDA4TAB5 PO (18:38)
[2017-10-14] MEDS ORDERED: RANO500T3 PO (18:38)
[2017-10-14] MEDS ORDERED: MECL25TA3 PO (18:38)
[2017-10-14] MEDS ORDERED: ISOS60TA PO (18:38)
[2017-10-14] MEDS ORDERED: ROSU40TA PO (18:38)
[2017-10-14] MEDS ORDERED: HYDR-3326 PO (18:38)
[2017-10-14] MEDS ORDERED: ASPIRIN 81 MG TAB.CHEW ONE (18:41)
[2017-10-14 19:07] LABS: BASOPHILS # (AUTO) 0.1 K/uL (0.0-8.0); BASOPHILS % (AUTO) 0.9 % (0.0-2.0); EOSINOPHILS # (AUTO) 0.2 K/uL (0.0-0.7); EOSINOPHILS % (AUTO) 3.1 % (0.0-7.0); HEMATOCRIT 32.1 % (36.7-47.1); HEMOGLOBIN 10.7 g/dL (12.5-16.3); LYMPHOCYTES # (AUTO) 1.1 K/uL (20.0-40.0); LYMPHOCYTES % (AUTO) 17.7 % (20.5-51.5); MEAN CORPUSCULAR HEMOGLOBIN 28.1 uug (23.8-33.4); MEAN CORPUSCULAR HGB CONC 33 g/dL (32.5-36.3); MEAN CORPUSCULAR VOLUME 84.4 fL (73.0-96.2); MONOCYTES # (AUTO) 0.4 K/uL (2.0-10.0); MONOCYTES % (AUTO) 6.9 % (0.0-11.0); NEUTROPHILS # (AUTO) 4.4 K/uL (1.8-8.9); NEUTROPHILS % (AUTO) 71.4 % (38.5-71.5); PLATELET COUNT (AUTO) 232 K/uL (152-348); RED BLOOD CELL COUNT(AUTO) 3.81 MIL/uL (4.06-5.63); WHITE BLOOD COUNT (AUTO) 6.2 K/uL (3.6-10.2)
--- NOTE | 2017-10-14 19:09 | NUR ---
Assumed care of patient. NSR on satellite project site monitor at this time. No c/o chest pain at this time. VSS. Respirations even and unlabored. Will continue to monitor patient. Bed in lowest position, wheels locked, call light is within reach.
--- NOTE | 2017-10-14 19:10 | NUR ---
[facility] ambulance personnel x2 are here but patient does not want to go home at this time, Dr Verma notified.
[2017-10-14 19:13] LABS: CREATININE 1.2 mg/dL (0.6-1.3); POTASSIUM 3.8 mmol/L (3.5-5.1)
[2017-10-14] MEDS ORDERED: IV NORMAL SALINE 500 ML IV ONE (19:24)
[2017-10-14 19:25] LABS: BILIRUBIN,DIRECT 0.1 mg/dL (0.0-0.2); BILIRUBIN,TOTAL 0.3 mg/dL (0.2-1.0); TOTAL PROTEIN, SERUM 6.9 g/dL (6.4-8.2)
[2017-10-14] MEDS ORDERED: IOHEXOL 300MG/ML 100 ML INFUS..BTL ONE (19:26)
[2017-10-14] MEDS ORDERED: IV NORMAL SALINE 100 ML ONE (19:26)
[2017-10-14] MEDS ORDERED: NORMAL SALINE FLUSH 10 ML DISP.SYRIN ONE (19:26)
--- NOTE | 2017-10-14 19:38 | NUR ---
Patient taken to CT at this time.
--- NOTE | 2017-10-14 20:07 | NUR ---
Patient awaiting telemetry admission under Dr Bajwa, Dx: Chest Pain
--- NOTE | 2017-10-14 20:15 | NUR ---
Report given to Marysol VASQUEZ on Telemetry at this time.
--- NOTE | 2017-10-14 20:31 | NUR ---
Pt. admitted to Telemetry, under care of Dr. Bajwa. Dx: Chest pain. Belongs List completed
--- NOTE | 2017-10-14 20:40 | NUR ---
ADMITTED NEW PATIENT TO ROOM 210,ALERT,ORIENTED X4, NO ACUTE DISTRESS NOTED,NSR ON TELE MONITOR,PATIENT STATED MINIMAL CHEST PAIN AT THIS TIMES,VITALS SIGNS STABLE,PATIENT RECEIVED NITRO BID FROM ER.PLANS OF CARE EXPLAINED AND PATIENT VERBALIZED UNDERSTANDING.NEEDS ATTENDED.
[2017-10-14 20:52] VITALS: BP 115/62
[2017-10-14 21:14] VITALS: BP 115/65
[2017-10-14] MEDS ORDERED: MECLIZINE HCL 25 MG TABLET PO SCH (21:15)
[2017-10-14] MEDS ORDERED: NITROGLYCERIN 0.4 MG/TAB BOTTLE SL SCH (21:15)
[2017-10-14] MEDS ORDERED: HYDROCODONE/APAP 5-325MG TABLET PO SCH (21:15)
[2017-10-14] MEDS ORDERED: ONDANSETRON HCL 4 MG TABLET PO SCH (21:15)
[2017-10-14] MEDS ORDERED: ZOLPIDEM 5 MG TABLET PO PRN (21:30)
[2017-10-14] MEDS ORDERED: ONDANSETRON 4 MG/2 ML VIAL IV PRN (21:30)
[2017-10-14] MEDS ORDERED: MAGNESIUM HYDROXIDE 30 ML LIQUID UDC PO PRN (21:30)
[2017-10-14] MEDS ORDERED: HYDROCODONE/APAP 5-325MG TABLET PO PRN (21:30)
[2017-10-14] MEDS ORDERED: Z GUARD REMEDY PASTE 57 GM TUBE TOP PRN (21:30)
[2017-10-14] MEDS: NITROGLYCERIN OINT 1 GM PACKET TP SCH ×2 (21:30→22:00)
[2017-10-14] MEDS ORDERED: ACETAMINOPHEN 325 MG TABLET PO PRN (21:30)
[2017-10-15 00:07] VITALS: BP 118/67
--- NOTE | 2017-10-15 01:05 | NUR ---
patient slept well, no acute distress noted, NSR on tele monitor.
[2017-10-15 04:47] VITALS: BP 146/79
[2017-10-15] MEDS: MORPHINE SULFATE 4 MG/1 ML DISP.SYRIN IV PRN (05:52)
[2017-10-15] MEDS: NITROGLYCERIN OINT 1 GM PACKET TP SCH ×3 (05:55→21:04)
[2017-10-15 06:01] LABS: BASOPHILS % (AUTO) 0.5 % (0.0-2.0); EOSINOPHILS # (AUTO) 0.2 K/uL (0.0-0.7); EOSINOPHILS % (AUTO) 2.7 % (0.0-7.0); HEMATOCRIT 30.8 % (36.7-47.1); HEMOGLOBIN 10.5 g/dL (12.5-16.3); LYMPHOCYTES # (AUTO) 0.9 K/uL (20.0-40.0); LYMPHOCYTES % (AUTO) 14.2 % (20.5-51.5); MEAN CORPUSCULAR HEMOGLOBIN 28.6 uug (23.8-33.4); MEAN CORPUSCULAR HGB CONC 34 g/dL (32.5-36.3); MONOCYTES # (AUTO) 0.4 K/uL (2.0-10.0); MONOCYTES % (AUTO) 6.4 % (0.0-11.0); NEUTROPHILS # (AUTO) 4.8 K/uL (1.8-8.9); NEUTROPHILS % (AUTO) 76.2 % (38.5-71.5); PLATELET COUNT (AUTO) 202 K/uL (152-348); RED BLOOD CELL COUNT(AUTO) 3.67 MIL/uL (4.06-5.63); WHITE BLOOD COUNT (AUTO) 6.3 K/uL (3.6-10.2)
[2017-10-15 06:08] LABS: CREATININE 0.9 mg/dL (0.6-1.3); MAGNESIUM 2.2 mg/dL (1.8-2.4); PHOSPHOROUS 4.8 mg/dL (2.5-4.9); POTASSIUM 3.9 mmol/L (3.5-5.1)
--- NOTE | 2017-10-15 06:18 | NUR ---
patient awaken c/o substernal chest pain ,pressure 5/10 level, Morphine 2 mg iv admin and NITRO-BID OINT admin as scheduled,continue closely monitor.
[2017-10-15] MEDS ORDERED: ONDANSETRON HCL 4 MG TABLET PO PRN (07:11)
[2017-10-15] MEDS ORDERED: NITROGLYCERIN 0.4 MG/TAB BOTTLE SL PRN (07:13)
[2017-10-15] MEDS: PANTOPRAZOLE SODIUM 40 MG TABLET.DR PO SCH (07:19)
--- NOTE | 2017-10-15 08:00 | NUR ---
awake alert ortx3 some forgetful but able to follow direction well NO PAIN OR SOB EAT BREAKFAST WELL ON FALL PRECAUTION CALL LIGHT IN REACH AND BED ALARM ON
[2017-10-15] MEDS: RANOLAZINE 500 MG TAB.ER.12H PO SCH ×2 (08:32→16:45)
[2017-10-15] MEDS: METOPROLOL TARTRATE 25 MG TABLET PO SCH ×2 (08:33→21:04)
[2017-10-15] MEDS: CLOPIDOGREL 75 MG TABLET PO SCH (09:08)
--- NOTE | 2017-10-15 10:00 | NUR ---
DR WALTON SEEN PATIENT AND LAB RESULT THIS AM NEW ORDER IN CHART
[2017-10-15 11:14] VITALS: BP 120/71
[2017-10-15] MEDS: MECLIZINE HCL 25 MG TABLET PO PRN (12:16)
--- NOTE | 2017-10-15 13:30 | NUR ---
DR GUILLERMO SEEN PATIENT AND NEW ORDER FOR ASA IN CHART
[2017-10-15] MEDS: ASPIRIN 81 MG TAB.CHEW PO SCH (14:42)
[2017-10-15 15:07] VITALS: BP 120/76
--- NOTE | 2017-10-15 17:20 | NUR ---
STABLE HEMODYNAMIC ,NO ACUTE DISTRESS ,PAIN UNDER CONTROL TELE -NSR SAFETY MEASURE PROVIDED CALL LIGHT IN REACH AND REMIND TO CALL WHEN NEED
[2017-10-15 20:24] VITALS: BP 146/78
[2017-10-15] MEDS ORDERED: Medication Not On Formulary EA (Rosuvastatin Calcium (Crestor) 40 MG) PO SCH (21:00)
[2017-10-15] MEDS: ATORVASTATIN 40 MG TABLET PO SCH (21:02)
[2017-10-16] VITALS: BP 130/55
[2017-10-16 04:00] VITALS: BP 137/74
[2017-10-16] MEDS: PANTOPRAZOLE SODIUM 40 MG TABLET.DR PO SCH (06:17)
[2017-10-16] MEDS: NITROGLYCERIN OINT 1 GM PACKET TP SCH ×3 (06:18→21:23)
--- NOTE | 2017-10-16 07:30 | NUR ---
Awake, alert, oriented x 4, complaining of chest pain 10/03. O2 sat RA 96%. Requested O2 for comfort, placed on O2 at 2L/NC. Tele SR 75.
[2017-10-16] MEDS: ASPIRIN 81 MG TAB.CHEW PO SCH (09:10)
[2017-10-16] MEDS: METOPROLOL TARTRATE 25 MG TABLET PO SCH ×2 (09:12→20:51)
[2017-10-16] MEDS: RANOLAZINE 500 MG TAB.ER.12H PO SCH ×2 (09:12→18:15)
[2017-10-16] MEDS: CLOPIDOGREL 75 MG TABLET PO SCH (09:12)
[2017-10-16] MEDS: MORPHINE SULFATE 4 MG/1 ML DISP.SYRIN IV PRN ×2 (09:13→10:29)
--- NOTE | 2017-10-16 10:30 | NUR ---
IV site leaking. Saline lock reinserted to RFA g22. Morphine IV given as ordered for chest pain. With relief after
[2017-10-16] MEDS: MECLIZINE HCL 25 MG TABLET PO PRN (11:01)
--- NOTE | 2017-10-16 11:08 | NUR ---
Complaining of dizziness. Meclizine po given as ordered. Instructed to call for assistance. Call light with in reach. For PT evaluation
[2017-10-16 12:00] VITALS: BP 122/65
[2017-10-16 16:00] VITALS: BP 131/68
--- NOTE | 2017-10-16 17:00 | NUR ---
With discharge order options of discharge was discussed by DC shutdown plannersudhir Garcia but patient wants to stay. Dr. Bajwa informed.
--- NOTE | 2017-10-16 17:11 | NUR ---
Spoke with pt and f/u if Dr lfores called him back. Pt states that Dr flores called him back. Reinforced and explained to pt that if he stays over tonight that he may be held financially liable on paying his stay due to insurance coverage as explained to him earlier with the continuous pillowcase cutter. Pt states that he is totally aware and the he will "appeal whatever the insurance charges him and that he will stay."
[2017-10-16 20:00] VITALS: BP_SYST 108; BP_SYST 130; BP_DIAS 53; BP_DIAS 68
[2017-10-16] MEDS: ATORVASTATIN 40 MG TABLET PO SCH (20:51)
[2017-10-17 01:17] VITALS: BP 120/65
[2017-10-17 04:00] VITALS: BP 133/53
[2017-10-17] MEDS: PANTOPRAZOLE SODIUM 40 MG TABLET.DR PO SCH (06:12)
[2017-10-17] MEDS: NITROGLYCERIN OINT 1 GM PACKET TP SCH (06:12)
--- NOTE | 2017-10-17 08:00 | NUR ---
AWAKE ALERT COOPERATE WELL NO PAIN ON FALL PRECASUTION CALL APONTE IN REACH AND INSTRUCTION TO CALL WHEN NEEDED
[2017-10-17] MEDS: ASPIRIN 81 MG TAB.CHEW PO SCH (08:38)
[2017-10-17] MEDS: RANOLAZINE 500 MG TAB.ER.12H PO SCH (08:38)
[2017-10-17 08:39] VITALS: BP 144/71
[2017-10-17] MEDS: CLOPIDOGREL 75 MG TABLET PO SCH (08:39)
[2017-10-17] MEDS: METOPROLOL TARTRATE 25 MG TABLET PO SCH (08:39)
--- NOTE | 2017-10-17 09:30 | NUR ---
PHYSICAL THERAPY AMB WITH PATIENT AND RECOMMEND TO HAVE FWW AT HOME AND WILL ORDER ONE FOR HIM PRIOR D/C HOME TODAY MAURA WALTON SEE PATIENT THIS AM ,PT CONDITION INFORM
--- NOTE | 2017-10-17 10:30 | NUR ---
physical therapy give quad cane to patient as request AND EXPLAINED ALL HOME MEDICINE AND D/C INSTRUCTION ,VERBALIZES UNDERSTAND HL DISCONTINUE PRIOR D/C HOME NO SOB OR PAIN
--- NOTE | 2017-10-17 12:45 | NUR ---
D/C HOME WITH HIS BELONGING CONDITION STABLE
== END 2017-10-17 12:50 | disposition home or self-care (01) | DRG 203 ==
LOC: ER 18:16 → TELE 20:22
PROVIDERS: ADMIT Internal Medicine; ATTEND Internal Medicine
DX: M94.0 Chondrocostal junction syndrome [Tietze] (principal); E44.0 Moderate protein-calorie malnutrition; E88.09 Other disorders of plasma-protein metabolism, not elsewhere classified; I25.2 Old myocardial infarction; I25.10 Atherosclerotic heart disease of native coronary artery without angina pectoris; D63.8 Anemia in other chronic diseases classified elsewhere; I10 Essential (primary) hypertension; F41.9 Anxiety disorder, unspecified; K21.9 Gastro-esophageal reflux disease without esophagitis; E66.9 Obesity, unspecified; Z68.28 Body mass index [BMI] 28.0-28.9, adult; E78.5 Hyperlipidemia, unspecified; M19.90 Unspecified osteoarthritis, unspecified site; Z87.891 Personal history of nicotine dependence; Z95.5 Presence of coronary angioplasty implant and graft; R91.1 Solitary pulmonary nodule; K40.90 Unilateral inguinal hernia, without obstruction or gangrene, not specified as recurrent; Z91.81 History of falling
CPT/HCPCS: 36415; 70030-TC; 71045; 83735; 84100; 85025; 93005; 97112; 97116; A4663; J2270; J3490; J8597; Q9967

== ENCOUNTER 2022-04-18 16:13 | Inpatient (IN) | payer MEDICARE, MEDICAID ==
[~2022-04-18] VITALS: Ht 182.9 cm; Wt 94.3 kg
[~2022-04-18 16:13] MED LIST changes: -AMLO5TAB4 PO; -ATOR80TA PO; -CARV3.122 PO; -DOXY100C2 PO; -FERR-68 PO; +FLUT16SP16 NS; -FLUT9.9S NS; +HYDR-3326 PO; -ISOS120T9 PO; -LORA-980 PO; -MAGN400C PO; -MECL12.582 PO; +MECL25TA3 PO; +METO25TA6 PO; +ONDA4TAB5 PO; -PANT40TA4 PO; +PANT40TA49 PO; -RANO10003 PO; +RANO500T3 PO; +ROSU40TA PO
[2022-04-18] MEDS ORDERED: ASPIRIN 81 MG TAB.CHEW PO ONE (16:15)
[2022-04-18] MEDS ORDERED: ASPIRIN 81 MG TAB.CHEW ONE (16:35)
[2022-04-18 16:42] LABS: MEAN CORPUSCULAR HEMOGLOBIN 28.2 uug (23.8-33.4); MEAN CORPUSCULAR VOLUME 83.7 fL (73.0-96.2); PLATELET COUNT (AUTO) 194 K/uL (152-348)
--- NOTE | 2022-04-18 16:49 | NUR ---
"Plan to admit" per Dr Verma, ER registration/admitting staff Madeline notified.
[2022-04-18 16:51] LABS: CARBON DIOXIDE 27 mmol/L (21-32); CHLORIDE 105 mmol/L (98-107); CREATININE 1.5 mg/dL (0.6-1.3); GLUCOSE 132 mg/dL (74-106); POTASSIUM 4.1 mmol/L (3.5-5.1); UREA NITROGEN, BLOOD 23 mg/dL (7-18)
[2022-04-18] MEDS ORDERED: hydrALAZINE HCL 20 MG/1 ML VIAL IV PRN (17:30)
[2022-04-18] MEDS ORDERED: ONDANSETRON 4 MG/2 ML VIAL IV PRN (17:30)
[2022-04-18] MEDS ORDERED: ACETAMINOPHEN 325 MG TABLET PO PRN (17:30)
[2022-04-18] MEDS ORDERED: ATOR80TA PO (17:50)
[2022-04-18] MEDS ORDERED: PANT40TA49 PO (17:50)
[2022-04-18] MEDS ORDERED: ISOS30TA86 PO (17:50)
[2022-04-18] MEDS ORDERED: RANO10003 PO (17:50)
[2022-04-18] MEDS ORDERED: FERR325T28 PO (17:50)
[2022-04-18] MEDS ORDERED: ACET-2154 PO (17:50)
[2022-04-18] MEDS ORDERED: NITR0.4T SL (17:50)
[2022-04-18] MEDS ORDERED: VOLTAREN GEL TP (17:50)
[2022-04-18] MEDS ORDERED: AMLO2.5T4 PO (17:50)
[2022-04-18] MEDS ORDERED: FLUT16SP BNOSTRILS (17:50)
[2022-04-18] MEDS ORDERED: FINA5TAB3 PO (17:50)
[2022-04-18] MEDS ORDERED: ASPI81TA31 PO (17:50)
[2022-04-18] MEDS ORDERED: DICL2.5D LEFTEYE (17:50)
--- NOTE | 2022-04-18 17:54 | NUR ---
Patient is for admission to 3rd floor telemetry, pending insurance authorization at this time per ER registrion staff/admitting staff Amy. Dr Mcdonald accepted patient. RN report given to CHRISTINA Becerril. Room 308 given. Belongs List completed. Bedside echocardiogram continues.
--- NOTE | 2022-04-18 18:17 | NUR ---
Dr [email or web address].
[2022-04-18 18:30] VITALS: BP 107/84
[2022-04-18] MEDS ORDERED: MECLIZINE HCL 25 MG TABLET PO PRN (18:45)
[2022-04-18] MEDS ORDERED: NITROGLYCERIN 0.4 MG/TAB BOTTLE SL PRN (18:45)
--- NOTE | 2022-04-18 18:50 | NUR ---
Dr Villanueva made aware about torponin 130, no new orders
[2022-04-18] MEDS: MORPHINE SULFATE 2 MG/1 ML DISP.SYRIN IV PRN (19:15)
--- NOTE | 2022-04-18 19:17 | NUR ---
patient admitted from ER for chest pain, still reported /, no radiating, dull pain, morphine given as ordered, will endorse accordingly. patient is alert oriented x4, no sob, respirations are even nonlabored, skin warm and dry to touch, ambulatory, steady gait, no acute distress noted.
--- NOTE | 2022-04-18 19:30 | NUR ---
PATIENT WAS FOUND QUIETLY RESTING IN BED. AAOX4. NO COMPLAIN OF CHEST PAIN OR SOB. NO SIGNS OF DISTRESS. NSR ON TELE. RIGHT HAND IV INTACT AND PATENT. NEEDS ASSESSED AND ATTENDED TO. SAFETY AND COMFORT MEASURES ARE ENFORCED. CALL LIGHT WITHIN REACHED. CONTINUE TO MONITOR.
[2022-04-18] MEDS ORDERED: TAMS-3 PO (19:35)
[2022-04-18 20:00] VITALS: BP 116/62
[2022-04-18] MEDS: HEPARIN SODIUM,PORCINE 5,000 UNITS/ML VIAL SQ SCH (21:00)
[2022-04-18] MEDS ORDERED: DICLOFENAC 0.1% OPHT DROP 2.5 ML BOTTLE LEFTEYE SCH (21:00)
[2022-04-18] MEDS ORDERED: Medication Not On Formulary EA (Rosuvastatin Calcium (Crestor) 40 MG) PO SCH (21:00)
[2022-04-18] MEDS: RANOLAZINE 500 MG TAB.ER.12H PO SCH (21:22)
[2022-04-18] MEDS: ATORVASTATIN 40 MG TABLET PO SCH (21:24)
[2022-04-18] MEDS: TAMSULOSIN HCL 0.4 MG CAP.SR.24H PO SCH (21:25)
[2022-04-19] VITALS: BP 131/73
[2022-04-19 04:00] VITALS: BP 125/64
[2022-04-19 06:34] LABS: HEMATOCRIT 30.4 % (36.7-47.1); MEAN CORPUSCULAR HEMOGLOBIN 28.8 uug (23.8-33.4); MEAN CORPUSCULAR VOLUME 84.2 fL (73.0-96.2); PLATELET COUNT (AUTO) 164 K/uL (152-348)
--- NOTE | 2022-04-19 06:44 | NUR ---
PATIENT SLEPT COMFORTABLY THROUGHOUT THE NIGHT. NO COMPLAIN OF CHEST PAIN OR SOB. NO SIGNS OF DISTRESS. NSR ON TELE, HR 61/MINUTE. RIGHT HAND IV INTACT AND PATENT. NEEDS ATTENDED TO AND MET. SAFETY AND COMFORT MEASURES ARE MAINTAINED. CALL LIGHT WITHIN REACHED. CONTINUE TO MONITOR.
[2022-04-19 06:49] LABS: BILIRUBIN,TOTAL 0.4 mg/dL (0.2-1.0); CREATININE 1.2 mg/dL (0.6-1.3); PHOSPHOROUS 4.3 mg/dL (2.5-4.9); TOTAL PROTEIN, SERUM 6.3 g/dL (6.4-8.2)
--- NOTE | 2022-04-19 06:54 | NUR ---
DR GUILLERMO INTO VISIT.
[2022-04-19] MEDS: PANTOPRAZOLE SODIUM 40 MG TABLET.DR PO SCH (07:03)
[2022-04-19] MEDS ORDERED: FINASTERIDE 5 MG TABLET PO SCH (09:00)
[2022-04-19] MEDS ORDERED: AMLODIPINE 2.5 MG TABLET PO SCH (09:00)
[2022-04-19] MEDS ORDERED: METOPROLOL TARTRATE 25 MG TABLET PO SCH (09:00)
[2022-04-19] MEDS ORDERED: FERROUS SULFATE 325 MG TABEC PO SCH (09:00)
[2022-04-19] MEDS: CLOPIDOGREL 75 MG TABLET PO SCH (09:16)
[2022-04-19] MEDS: FLUTICASONE PROP NASAL SPRAY 16 GM BOTTLE NS SCH (09:16)
[2022-04-19] MEDS: ASPIRIN 81 MG TAB.CHEW PO SCH (09:16)
[2022-04-19] MEDS: ISOSORBIDE MONONITRATE 60 MG TAB.SR.24H PO SCH (09:20)
[2022-04-19] MEDS: RANOLAZINE 500 MG TAB.ER.12H PO SCH ×2 (09:20→21:35)
[2022-04-19] MEDS: HEPARIN SODIUM,PORCINE 5,000 UNITS/ML VIAL SQ SCH ×3 (09:22→21:38)
[2022-04-19 11:55] VITALS: BP 142/81
--- NOTE | 2022-04-19 13:30 | NUR ---
Patient back was transferred to [facility] for CT angio and has returned to 308B in stable condition. Telemetry placed. Awaiting results of CT angio. Lunch provided.
[2022-04-19 15:55] VITALS: BP 139/73
[2022-04-19] MEDS: MECLIZINE HCL 25 MG TABLET PO PRN (18:38)
[2022-04-19 20:00] VITALS: BP 150/77
[2022-04-19] MEDS ORDERED: AMLODIPINE 2.5 MG TABLET PO ONE (21:15)
[2022-04-19] MEDS ORDERED: LOSARTAN POTASSIUM 50 MG TABLET PO ONE (21:30)
[2022-04-19] MEDS: TAMSULOSIN HCL 0.4 MG CAP.SR.24H PO SCH (21:35)
[2022-04-19] MEDS: ATORVASTATIN 40 MG TABLET PO SCH (21:36)
[2022-04-20] VITALS: BP_SYST 131; BP_SYST 155; BP_DIAS 77; BP_DIAS 86
[2022-04-20 04:00] VITALS: BP 137/59
[2022-04-20] MEDS: MORPHINE SULFATE 2 MG/1 ML DISP.SYRIN IV PRN (04:24)
--- NOTE | 2022-04-20 06:00 | NUR ---
1999--599--PT REMAINS A/OX4 WITH STABLE VS. PT HAD C/O CPX1 AT APPROX 0400. PT RATED PAIN AT 8-9/10. PT MED WITH MS 2MG SLOW IVP. STAT EKG DONE ALSO. PT STATES RELIEF AFTER MED. PT HAS BEEN ON RA. RESPS REG/UNLAB. IVS I/P VIA RIGHT ARM--H.L. PT VOIDING WELL. PT ALSO VERBALIZED CONCERN FOR HIS BP IN 150'S SYST. CHALO DNP CONTACTED AND ORD. COZAAR 50MG PO AND NORVASC 2.5MG. PT CONT. IN SR. EKG SHOWS 1 DEGREE AVB. PT ENDORSED TO CHRISTINA RAO IN STABLE COND. SLAYA VASQUEZ
[2022-04-20] MEDS: PANTOPRAZOLE SODIUM 40 MG TABLET.DR PO SCH (07:09)
--- NOTE | 2022-04-20 07:30 | NUR ---
Sleeping, appears comfortable. Tele SR.
[2022-04-20] MEDS: FLUTICASONE PROP NASAL SPRAY 16 GM BOTTLE NS SCH (08:59)
[2022-04-20] MEDS: ASPIRIN 81 MG TAB.CHEW PO SCH (08:59)
[2022-04-20] MEDS: CLOPIDOGREL 75 MG TABLET PO SCH (09:00)
[2022-04-20] MEDS: ISOSORBIDE MONONITRATE 60 MG TAB.SR.24H PO SCH (09:00)
[2022-04-20] MEDS ORDERED: AMLODIPINE 2.5 MG TABLET PO SCH (09:00)
[2022-04-20] MEDS ORDERED: LOSARTAN POTASSIUM 50 MG TABLET PO SCH (09:00)
[2022-04-20] MEDS: RANOLAZINE 500 MG TAB.ER.12H PO SCH (09:01)
[2022-04-20] MEDS: MECLIZINE HCL 25 MG TABLET PO PRN (09:01)
[2022-04-20] MEDS: HEPARIN SODIUM,PORCINE 5,000 UNITS/ML VIAL SQ SCH (09:05)
[2022-04-20] MEDS ORDERED: LOSA50TA3 PO (10:16)
[2022-04-20] MEDS ORDERED: AMLO2.5T4 PO (10:16)
--- NOTE | 2022-04-20 11:17 | NUR ---
With discharge order to home. Saline lock removed. Tele removed. DC instructions given, verbalized understanding.
[2022-04-20 12:00] VITALS: BP 132/67
--- NOTE | 2022-04-20 12:46 | NUR ---
Had lunch; went home per ambulatory as per patient's desire, in fair condition, not in distress, afebrile.
--- NOTE | 2022-04-21 07:58 | NUR ---
INFORMATION SENT:FACESHEET,24 HRS REPORT,PROGRESS NOTES 04/20,DISCHARGE SUMMARY FAXED CLINICALS TO FELIX [phone] FAX SENT BY JANEY
== END 2022-04-20 12:45 | disposition home or self-care (01) | DRG 190 ==
LOC: ER 16:15 → TELE3 18:19
PROVIDERS: ADMIT Internal Medicine; ATTEND Nurse Practitioner Acute Care
DX: I25.111 Atherosclerotic heart disease of native coronary artery with angina pectoris with documented spasm (principal); I21.A1 Myocardial infarction type 2; N17.0 Acute kidney failure with tubular necrosis; D64.9 Anemia, unspecified; E78.5 Hyperlipidemia, unspecified; G89.29 Other chronic pain; I48.0 Paroxysmal atrial fibrillation; Z87.891 Personal history of nicotine dependence; Z95.5 Presence of coronary angioplasty implant and graft; I25.2 Old myocardial infarction; I13.0 Hypertensive heart and chronic kidney disease with heart failure and stage 1 through stage 4 chronic kidney disease, or unspecified chronic kidney disease; N18.9 Chronic kidney disease, unspecified; Z79.82 Long term (current) use of aspirin; I50.9 Heart failure, unspecified; Z82.49 Family history of ischemic heart disease and other diseases of the circulatory system
CPT/HCPCS: 36415; 71045; 84100; 84484; 85025; 93005; 93307; A4663; G0378; J1644; J2270; J3535; J8597

== ENCOUNTER 2022-11-12 16:25 | Inpatient (IN) | payer MEDICARE, MEDICAID ==
[~2022-11-12] VITALS: Ht 185.4 cm; Wt 84.8 kg
[~2022-11-12 16:25] MED LIST changes: +ACET-2154 PO; +AMLO2.5T4 PO; +ASPI81TA31 PO; +ATOR80TA PO; +FERR325T28 PO; +FLUT16SP BNOSTRILS; -FLUT16SP16 NS; -HYDR-3326 PO; +ISOS30TA86 PO; +LOSA50TA3 PO; -METO25TA6 PO; -ONDA4TAB5 PO; +RANO10003 PO; -RANO500T3 PO; -ROSU40TA PO; +TAMS-3 PO
[2022-11-12] MEDS ORDERED: ASPIRIN 81 MG TAB.CHEW PO ONE (17:00)
[2022-11-12] MEDS ORDERED: NITROGLYCERIN OINT 1 GM PACKET TP ONE ×2 (17:00)
[2022-11-12] MEDS ORDERED: ASPIRIN 81 MG TAB.CHEW ONE (17:00)
[2022-11-12] MEDS ORDERED: ISOS120T13 PO (17:01)
[2022-11-12] MEDS ORDERED: DILT-32 PO (17:01)
[2022-11-12] MEDS ORDERED: DILT30TA2 PO (17:01)
[2022-11-12 17:08] LABS: HEMATOCRIT 32.4 % (36.7-47.1); MEAN CORPUSCULAR HEMOGLOBIN 29.2 uug (23.8-33.4); MEAN CORPUSCULAR VOLUME 84.8 fL (73.0-96.2); PLATELET COUNT (AUTO) 222 K/uL (152-348)
[2022-11-12 17:19] LABS: CARBON DIOXIDE 27 mmol/L (21-32); CHLORIDE 107 mmol/L (98-107); CREATININE 1.1 mg/dL (0.6-1.3); GLUCOSE 123 mg/dL (74-106); POTASSIUM 3.8 mmol/L (3.5-5.1); UREA NITROGEN, BLOOD 20 mg/dL (7-18)
[2022-11-12 17:27] LABS: ALANINE AMINOTRANSFERASE 25 U/L (16-63); ALKALINE PHOSPHATASE 123 U/L (50-136); ASPARTATE AMINOTRANSFERASE 17 U/L (15-37); BILIRUBIN,DIRECT 0.1 mg/dL (0.0-0.2); BILIRUBIN,TOTAL 0.3 mg/dL (0.2-1.0); TOTAL PROTEIN, SERUM 6.7 g/dL (6.4-8.2)
[2022-11-12] MEDS ORDERED: ACETAMINOPHEN 325 MG TABLET ONE (17:41)
[2022-11-12] MEDS ORDERED: ACETAMINOPHEN 325 MG TABLET PO ONE (17:45)
--- NOTE | 2022-11-12 17:46 | NUR ---
"Plan to admit" per Dr Almeida. ER registration/admitting staff Lolly notified.
[2022-11-12] MEDS ORDERED: METOPROLOL SUCCINATE XL 25 MG TAB.SR.24H PO ONE ×2 (17:59→18:00)
--- NOTE | 2022-11-12 18:27 | NUR ---
Manuel wolf in [facility] - 11/12/22 at 1900 by NAPOLEON [facility], pending available telemetry nurse & bed at this time.
--- NOTE | 2022-11-12 18:27 | NUR ---
Patient is resting comfortably on gurney with eyes closed, pending available telemetry nurse & bed at this time.
--- NOTE | 2022-11-12 18:44 | NUR ---
Patient ambulated to the bathroom with steady gait. Voided once.
--- NOTE | 2022-11-12 19:01 | NUR ---
Nursing SBAR given to CHRISTINA Esparza and charge authorizer Adrian.
--- NOTE | 2022-11-12 19:39 | NUR ---
Lab at bedside.
--- NOTE | 2022-11-12 19:40 | NUR ---
Per third floor, no avaliable TELE beds. Patient to stay in the ER.
--- NOTE | 2022-11-12 20:26 | NUR ---
Patient resting comfortably in bed, eyes closed. No signs of distress noted.
[2022-11-12] MEDS ORDERED: ONDANSETRON 4 MG/2 ML VIAL IV PRN (23:45)
[2022-11-12] MEDS ORDERED: MAGNESIUM HYDROXIDE 30 ML LIQUID UDC PO PRN (23:45)
[2022-11-12] MEDS ORDERED: REMEDY ESSENTIAL ZINC PASTE 113 GM TP PRN (23:45)
--- NOTE | 2022-11-13 00:32 | NUR ---
Patient placed in hospital bed for comfort.
[2022-11-13] MEDS ORDERED: ENOXAPARIN SODIUM 40 MG/0.4 ML DISP.SYRIN SQ ONE (00:34)
[2022-11-13] MEDS ORDERED: ACETAMINOPHEN 325 MG TABLET ONE (00:35)
[2022-11-13] MEDS: ACETAMINOPHEN 325 MG TABLET PO PRN ×2 (00:36→15:38)
[2022-11-13] MEDS: ENOXAPARIN SODIUM 40 MG/0.4 ML DISP.SYRIN SQ SCH ×2 (00:36→21:33)
--- NOTE | 2022-11-13 02:06 | NUR ---
Patient sleeping comfortably in bed, no signs of distress noted.
--- NOTE | 2022-11-13 05:15 | NUR ---
Patient c/o 02/02 substernal chest pain. Called [facility] for panel call, Dr. Up weekend receptionist. Waiting for call back for additional orders.
--- NOTE | 2022-11-13 05:45 | NUR ---
Spoke with Dr. Up given verbal order for chest pain Morphine 2mg Q4HR PRN for pain.
[2022-11-13 05:52] LABS: HEMATOCRIT 31.9 % (36.7-47.1); MEAN CORPUSCULAR HEMOGLOBIN 28.7 uug (23.8-33.4); PLATELET COUNT (AUTO) 177 K/uL (152-348)
[2022-11-13] MEDS ORDERED: MORPHINE SULFATE 2 MG/1 ML DISP.SYRIN ONE (05:57)
[2022-11-13] MEDS: MORPHINE SULFATE 2 MG/1 ML DISP.SYRIN IVP PRN ×2 (06:00→15:38)
--- NOTE | 2022-11-13 06:02 | NUR ---
Patient given Morphine 2mg IV for 8/[address] Up's telephone order/with readback.
[2022-11-13 06:07] LABS: CREATININE 0.9 mg/dL (0.6-1.3); MAGNESIUM 2.1 mg/dL (1.8-2.4); PHOSPHOROUS 3.8 mg/dL (2.5-4.9); POTASSIUM 3.9 mmol/L (3.5-5.1)
[2022-11-13 06:17] LABS: THYROID STIMULATING HORMONE 1.304 mIU/mL (0.358-3.740)
--- NOTE | 2022-11-13 07:04 | NUR ---
Report given to Jose VASQUEZ.
[2022-11-13] MEDS ORDERED: PANTOPRAZOLE SODIUM 40 MG TABLET.DR PO ONE (07:06)
[2022-11-13] MEDS: PANTOPRAZOLE SODIUM 40 MG TABLET.DR PO SCH (07:09)
[2022-11-13] MEDS ORDERED: COLCHICINE 0.6 MG TABLET ONE (09:30)
[2022-11-13] MEDS ORDERED: DILTIAZEM HCL CD 120 MG CAP.SR.24H PO ONE (09:31)
[2022-11-13] MEDS ORDERED: ASPIRIN 81 MG TAB.CHEW ONE (09:31)
[2022-11-13] MEDS: ASPIRIN 81 MG TAB.CHEW PO SCH (09:39)
[2022-11-13] MEDS: COLCHICINE 0.6 MG TABLET PO SCH ×2 (09:39→17:18)
[2022-11-13] MEDS: DILTIAZEM HCL CD 240 MG CAP.SR.24H PO SCH (09:39)
[2022-11-13] MEDS: ISOSORBIDE MONONITRATE 60 MG TAB.SR.24H PO SCH (09:40)
--- NOTE | 2022-11-13 10:21 | NUR ---
REPORT WAS GIVEN TO MAILROOM COORDINATOR. PT WAS TRANSFERED TO ROOM#310.
--- NOTE | 2022-11-13 10:30 | NUR ---
TRANSFER FROM ER - ENDORSEMENT FROM [facility] AIRLINE SECURITY REPRESENTATIVE FOLLOWS: 1) Received patient AOx4, no sign of SOB - on RA, pain, discomfort, or distress observed on arrival. 2) No complaints of Chest pain - or signs of pain. 3) Iv access - clean, dry, and patent. No signs of inflammation or infection observed. 4) Patient transferred independently from stretcher to bed - has BRP. 5) No skin issues - refused to be examined. 6) Will continue to access, plan, implement, and treat accordingly.
--- NOTE | 2022-11-13 11:09 | NUR ---
COMFORT: 1) Patient not happy with the room because " its a standard room" would not elaborate what he meant by that. 2) Was also upset because the remote would not work. 3) Reassurance given - with minimal effect - patient threatening to AMA.
--- NOTE | 2022-11-13 11:30 | NUR ---
EATING & DRINKIN) Patient offered, water, coffee, Ham sandwich, drinks and crackers. 2) Patient apologized for prior behavior. 3) Patient reassured to use call pretty should patient require further assistance.
[2022-11-13 11:31] VITALS: BP 116/64
--- NOTE | 2022-11-13 12:01 | NUR ---
ROUNDING: Checked on patient and asleep - comfortably, no signs of distress
--- NOTE | 2022-11-13 13:45 | NUR ---
ROUNDING: - Patient still asleep
--- NOTE | 2022-11-13 14:35 | NUR ---
HEADACHE: Patient complaining of headache - x2 Tylenol administered and awaiting effect
--- NOTE | 2022-11-13 14:38 | NUR ---
SAFETY: 1) Patient walking around the unit, was exercising biceps 2) Advised patient to stay in bed and rest- refused stating that MD wants patient to exercise. 3) Safety maintained at all times.
--- NOTE | 2022-11-13 15:42 | NUR ---
CHEST PAIN: 1) Complaining of some chest pain - not radiating, or N&V. 2) Patient due Morphine and Zofran, which were administered as prescribed. 3) Awaiting effect of medication
[2022-11-13 16:05] VITALS: BP 103/51
[2022-11-13] MEDS ORDERED: RANO500T3 PO (18:24)
[2022-11-13] MEDS ORDERED: ACETAMINOPHEN 325 MG TABLET-SA PATIENTS-PAIN ONLY PO PRN (18:30)
[2022-11-13] MEDS ORDERED: MECLIZINE HCL 25 MG TABLET PO PRN (18:30)
[2022-11-13] MEDS ORDERED: NITROGLYCERIN 0.4 MG/TAB BOTTLE SL PRN (18:30)
--- NOTE | 2022-11-13 18:42 | NUR ---
MD REVIEW: 1) MD tried to explain to patient who expressed unhappiness with: (i) food (ii) room (iii) wanted to go to [facility] 2) MD tried to explain that this is what case management social worker can sort out for patient tomorrow, however patient was agitated and wants things done here and then. 3) MD advised - that meds need reconciliation - awaiting action.
--- NOTE | 2022-11-13 18:42 | NUR ---
ENDORSEMENT TO NIGHT STAFF: 1) Patient clinically stable. 2) Will endorse care to night staff accordingly.
[2022-11-13 20:00] VITALS: BP 113/56
[2022-11-13] MEDS ORDERED: ATORVASTATIN 40 MG TABLET PO SCH (21:00)
[2022-11-13] MEDS ORDERED: TAMSULOSIN HCL 0.4 MG CAP.SR.24H PO SCH (21:00)
[2022-11-14] VITALS: BP 108/62
[2022-11-14] MEDS: ACETAMINOPHEN 325 MG TABLET PO PRN (01:10)
--- NOTE | 2022-11-14 01:59 | NUR ---
PT CONCERNED ABOUT HIS LOW B/P AND CURRENT MEDS THAT HE IS GETTING, INFORMED HIM TO TALK T HIS DR WHEN HE GETS HERE LATER
--- NOTE | 2022-11-14 04:00 | NUR ---
refused to have vss taken, stated that he wanted to sleep
[2022-11-14 06:47] LABS: HEMATOCRIT 30.1 % (36.7-47.1); MEAN CORPUSCULAR HEMOGLOBIN 29.4 uug (23.8-33.4); MEAN CORPUSCULAR VOLUME 86.2 fL (73.0-96.2); PLATELET COUNT (AUTO) 168 K/uL (152-348)
[2022-11-14 07:00] LABS: MAGNESIUM 2.2 mg/dL (1.8-2.4); PHOSPHOROUS 4.1 mg/dL (2.5-4.9)
[2022-11-14] MEDS: PANTOPRAZOLE SODIUM 40 MG TABLET.DR PO SCH (07:00)
--- NOTE | 2022-11-14 07:19 | NUR ---
REPORT GIVEN TO CHRISTINA MERRITT
--- NOTE | 2022-11-14 08:39 | NUR ---
RECEIVED FROM NIGHT NURSE: 1) Received AO x4 - asleep comfortably, no signs of pain, SOB -RA 2) Patient didn't sleep much - was up and down during the night. 3) No bowel movement - BRP in situ. 4) C/o of headache and Tylenol administered as prescribed. 5) Pressure intact - self turning 6) Will continue to assess, plan, implement and evaluate care accordingly.
[2022-11-14] MEDS ORDERED: PANTOPRAZOLE SODIUM 40 MG TABLET.DR PO SCH (09:00)
[2022-11-14] MEDS ORDERED: ASPIRIN 81 MG TAB.CHEW PO SCH (09:00)
[2022-11-14] MEDS ORDERED: DILTIAZEM HCL CD 120 MG CAP.SR.24H PO SCH (09:00)
[2022-11-14] MEDS ORDERED: RANOLAZINE 500 MG TAB.ER.12H PO SCH ×2 (09:00)
[2022-11-14] MEDS ORDERED: DILTIAZEM HCL 30 MG TABLET PO SCH (09:00)
[2022-11-14] MEDS ORDERED: CLOPIDOGREL 75 MG TABLET PO SCH (09:00)
--- NOTE | 2022-11-14 09:45 | NUR ---
1) Patient did not like RN looking after him because " people like you, people of colored, don't know about cardiac problems, I want Nurse [place]!" 2) No REESE - but informed RN [place] - who took over the care of the patient. 3) Patient was told that due to staff shortage - its not visible that another nurse can be allocated to patient.
[2022-11-14 09:46] VITALS: BP 125/70
[2022-11-14] MEDS: ISOSORBIDE MONONITRATE 60 MG TAB.SR.24H PO SCH (09:46)
[2022-11-14] MEDS: DILTIAZEM HCL CD 240 MG CAP.SR.24H PO SCH (09:46)
[2022-11-14] MEDS: ASPIRIN 81 MG TAB.CHEW PO SCH (09:46)
[2022-11-14] MEDS ORDERED: DILT240C88 PO (10:17)
--- NOTE | 2022-11-14 10:30 | NUR ---
DISCHARGE: SB physician and MD to discharge patient - awaiting orders
--- NOTE | 2022-11-14 10:45 | NUR ---
DISCHARGE PLANNIN) Patient left without signing papers. 2) Patient left with an ID band still in situ. 3) Tried to look for patient but could not find him
== END 2022-11-14 10:30 | disposition home or self-care (01) | DRG 190 ==
LOC: ER 16:25 → TRANSITION 11-13 00:16 → TELE3 11-13 09:41
PROVIDERS: ADMIT Student in an Organized Health Care Education/Training Program; ATTEND Student in an Organized Health Care Education/Training Program
DX: I25.111 Atherosclerotic heart disease of native coronary artery with angina pectoris with documented spasm (principal); I21.A1 Myocardial infarction type 2; D64.9 Anemia, unspecified; I48.0 Paroxysmal atrial fibrillation; E78.5 Hyperlipidemia, unspecified; N18.9 Chronic kidney disease, unspecified; Z95.5 Presence of coronary angioplasty implant and graft; R70.0 Elevated erythrocyte sedimentation rate; Z79.82 Long term (current) use of aspirin; Z79.02 Long term (current) use of antithrombotics/antiplatelets; Z79.899 Other long term (current) drug therapy; Z87.891 Personal history of nicotine dependence; Z82.49 Family history of ischemic heart disease and other diseases of the circulatory system; Z87.01 Personal history of pneumonia (recurrent)
CPT/HCPCS: 36415; 71045; 83735; 84100; 84443; 84484; 85025; 85651; 86140; 93005; A4663; G0378; J1650; J2270; J2405